=== PATIENT | female | born 1940 | race Two or more races ===

== ENCOUNTER → 2023-10-02 08:04 | Outpatient (BNV) | payer MEDICAID, SELFPAY | PROVIDERS: Visit Provider Internal Medicine | DX: Z85.3 Personal history of malignant neoplasm of breast (principal); M81.0 Age-related osteoporosis without current pathological fracture | CPT/HCPCS: 99204; 99214 ==

== ENCOUNTER 2024-08-20 10:11 | Outpatient (REF) | payer MEDICAID, SELFPAY ==
--- OUTSIDE RECORDS SUMMARY | 2024-08-20 11:54 | XMS_ITS | Clinical Summary ---
Author Organization [employer] Address [address] [place] [address] 7 [place] [address] Care Team Providers Care Swim Coach Name Role Phone Arianne Patel MD Primary Care Provider [phone] Allergies Active Allergy Reactions Criticality Noted Date Comments Amoxicillin 07/06/2023 Medications valACYclovir (Valtrex) 1 g tablet 07/26/19 24 Active gabapentin (Neurontin) 300 MG capsuleIndication s:Trigeminal neuralgia of right side of face TAKE 1 CAPSULE BY MOUTH THREE TIMES A DAY 90 capsule 2 10/19/19 24 Active fluconazole (Diflucan) 150 MG tablet Take 1 tablet (150 mg) by mouth every 3rd (third) day. 3 tablet 11/14/19 24 Active Multiple Vitamin (Daily-Jeanette Multivitamin) tablet TAKE 1 TABLET BY MOUTH EVERY DAY IN THE MORNING 90 tablet 1 12/01/19 24 Active magnesium oxide (Mag-Ox) 400 (240 Mg) MG tablet TAKE 1 TABLET (400 MG) BY MOUTH IN THE MORNING 90 tablet 1 02/01/20 24 Active zolpidem (Ambien) 5 MG tabletIndications :Insomnia, unspecified type Take 1 tablet (5 mg) by mouth if needed at bedtime for sleep. 28 tablet 1 02/07/20 24 Active levothyroxine (Synthroid, Levoxyl) 25 MCG tabletIndications :Acquired hypothyroidism TAKE 1 TABLET BY MOUTH EVERY DAY BEFORE BREAKFAST 90 tablet 1 07/09/19 25 Active Blood Pressure kitIndications:Pr imary hypertension 1 kit 2 times daily. 1 kit 08/21/19 25 Active bisoprolol (Zebeta) 10 MG tablet Take 1 tablet (10 mg) by mouth Once per day. 90 tablet 1 08/21/19 25 2025 Active letrozole (Femara) 2.5 MG chemo tabletIndications :History of breast cancer in female TAKE 1 TABLET BY MOUTH IN THE MORNING. TAKE WITH OR WITHOUT FOOD. 90 tablet 1 12/01/19 24 2024 Discontinued(T herapy completed) bisoprolol (Zebeta) 5 MG tabletIndications :Primary hypertension Take 1 tablet (5 mg) by mouth Once per day. 90 tablet 1 02/12/20 24 2024 Discontinued(R eorder (will not trigger notification to Pharmacy)) bisoprolol (Zebeta) 5 MG tabletIndications :Primary hypertension Take 1 tablet (5 mg) by mouth Once per day. 90 tablet 1 08/08/19 25 2024 Discontinued(I neffective) Active Problems Problem Noted Date Diagnosed Date History of breast cancer in female 07/06/2023 Assessment & Plan (07/06/2023 3:58 PM EST): Patient has a history of breast cancer in 2015. Her last mammogram was in November 2022 but never obtained results. I have referred her to an oncologist. Per patient was told she needed to use letrozole for the rest of her life, no documentation of recommendation of duration. Will refer to oncology to review recommendation of frequency of imaging, duration of letrozole to weigh the benefits of longer treatment against the well-known side effects of therapy, such as arthralgias, osteoporosis, hair thinning, and genitourinary health Primary hypertension 07/06/2023 Assessment & Plan (07/31/2023 10:12 PM EDT): High blood pressure was noted, ans she was advised to monitor her blood pressure at home and F/U with a nurse in a few weeks for re-evaluation. No changes were made to her blood pressure medication at this time. Future Appointments Date Time Provider Department Center 01/04/2024 9:00 AM Deedee Mendez OD [facility] Assessment & Plan (07/06/2023 12:00 PM EST): Patient is a new patient accompanied by daughter who is helping translate in Bulgarian. Her last PCP was in [place]. She will be traveling to [place] and will get all the medical records. Daughter will upload immunization record into portal and will check if she needs any during her next F/U. She also wants a refill of her medication that are about to finish. I have also referred her to nibbler operator. Labs: CBC, Complete Metabolic Panel, Lipids, TSH w/ reflex to FT4, Albumin, Urinalysis complete w/ reflex to culture Future Appointments Date Time Provider Department Center 07/31/2023 9:15 AM Arianne Patel MD [facility] Acquired hypothyroidism 07/06/2023 Herpes labialis 07/06/2023 Trigeminal neuralgia of right side of face 07/06 Assessment & Plan (07/06/2023 3:54 PM EST): Patient reports hx of trigeminal neuralgia, reports has intermittent episodes and has a good response with gabapentin. Severe aortic stenosis 07/06/2023 Overview (07/06/2023): Biological prosthesis (2019) Assessment & Plan (07/06/2023 11:58 AM EST): Patient reports she has Aortic Stenosis. I have sent her for an ECHO and referred her to waitstaff captain. Encounters Date Type Department Care Team Description 08/20/2024 9:15 AM EDT Office Visit [facility] [address] [place] [address] Courtney Hein MD Primary hypertension (Primary Dx); Acquired hypothyroidism 08/20/2024 Travel 08/19/2024 Telephone [facility] MEDICINE [address] [place] [address] Arianne Patel MD 08/07/2024 Refill [facility] [address] [place] [address] Didi Weathers MD Primary hypertension 08/07/2024 Refill [facility] [address] [place] [address] Arianne Patel MD Primary hypertension 07/06/2024 Refill [facility] [address] [place] [address] Didi Weathers MD Acquired hypothyroidism 06/12/2024 9:30 AM EST Office Visit [facility] OPTOMETRY [address] [place] [address] Deedee Mendez, OD Presbyopia (Primary Dx) 06/12/2024 Travel from Last 3 Months Immunizations Name Administration Dates Next Due Pneumococcal Conjugate PCV 20 07/31/2023 Family History Medical History Relation Name Comments Glaucoma Neg Hx Macular degeneration Neg Hx Social History Tobacco Use Types Packs/Day Years Used Date Smoking Tobacco: Never Passive Smoke Exposure: Never Smokeless Tobacco: Never Tobacco Cessation:Counseling Given: Not Answered Alcohol Use Standard Drinks/Week Comments Never 0 (1 standard drink = 0.6 oz pur e alcohol) Depression Answer Date Recorded Patient Health Questionnaire-9 Score 5 08/20/2024 Patient Health Questionnaire-9 Score 5 08/20/2024 Last PHQ-9: Questionnaire Data Not on file 0 08/20/2024 Housing Stability Answer Date Recorded What is your housing situation today? Not on sheryl e 08/20/[address] you li ve. Do you have problems with any of the following? None of the above 08/20/2024 Food Insecurity Answer Date Recorded Within the past 12 months, y ou worried that your food would run out before you got money to buy more: Never True 08/20/2024 Within the past 12 months,th e food you bought just didn't last and you didn't have enough money to get more: Not on file 05/2024 Transportation Answer Date Recorded In the past 12 months, has l ack of transportation kept you from medical appts, meetings, work or from getting things needed for daily living? No 08/20/2024 Utilities Answer Date Recorded In the past 12 months, has t he electric, gas, oil or water company threatened to shut off services in your home? No 08/20/2024 Depression Answer Date Recorded Patient Health Questionnaire-2 Score 1 08/20/2024 Internet Access Answer Date Recorded Internet Access Q1 Yes 08/20/2024 Internet Access Q2 Not on file 08/20/2024 Comments Unknown Sex and Gender Information Value Date Recorded Sex Assigned at Female 04/07/2023 9:47 AM EST Legal Sex Female 10:45 AM EST Gender Identity Female 04/07/2023 9:47 AM EST Sexual Orientation Straight 04/07/2023 9: 47 AM EST Last Filed Vital Signs Vital Sign Reading Time Taken Comments Blood Pressure 191/81 08/20/2024 8:55 AM EDT Pulse 54 08/20/2024 8:55 AM EDT Temperature 36.2 ??C (97.2 ??F) 08/20/2024 8:55 AM ED T Respiratory Rate 14 08/20/2024 8:55 AM EDT Oxygen Saturation 96% 08/20/2024 8:55 AM EDT Inhaled Oxygen Concentration - - Weight 55.7 kg (122 lb 12.8 oz) 08/20/2024 8:55 AM EDT Height 141 cm (4' 7.5 ) 08/20/2024 8:55 AM EDT Body Mass Index 28.03 08/20/2024 8:55 AM EDT Plan of Treatment Upcoming Encounters Date Type Department Care Team (Late st Contact Info) Description 09/16/2024 10:00 AM EDT Clinical Support [facility] [address] [place] [address] Health Maintenance Due Date Last Done Comments Lipid Panel 1942 Alcohol/Substance Use Screening 1954 DTaP/Tdap/Td Vaccines (1 - Tdap) 1961 Zoster Vaccines (1 of 2) 1992 RSV Patients and Patients Aged 60 years or older (1 - 1-dose 75+ series) 2017 COVID-19 Vaccine ( - 2023-2 5 season) 2024 Influenza Vaccine (#1) 2024 SDOH Screening 07/06/2024 07/06/2023 Depression Screening 08/20/2025 08/20/2024, 08/20/2024 Tobacco Screening 08/20/2025 08/20/2024 Pneumococcal Vaccine: 50+ Years Completed 07/31/2023 HIB Vaccines Aged Out No longer eligi ble based on patient's age to complete this topic HPV Vaccines Aged Out No longer eligi ble based on patient's age to complete this topic Hepatitis A Vaccines Aged Out No long er eligible based on patient's age to complete this topic Hepatitis B Vaccines Aged Out No long er eligible based on patient's age to complete this topic IPV Vaccines Aged Out No longer eligi ble based on patient's age to complete this topic Meningococcal Vaccine Aged Out No onelia yesenia eligible based on patient's age to complete this topic RSV under 20 months Aged Out No longe r eligible based on patient's age to complete this topic Rotavirus Vaccines Aged Out No longer eligible based on patient's age to complete this topic Insurance [employer] Care Teams Swim Coach Relationship Specialty Start Date End Date Arianne Patel MD [address] [place] [address] PCP - General Family Medicine 05/24/23
--- OUTSIDE RECORDS SUMMARY | 2024-08-20 11:54 | XMS_ITS | Encounter Summary ---
Author Organization [employer] Address [address] [facility] 7t [place] [address] Care Team Providers Care Financial Sales Consultant Name Role Phone Arianne Patel MD Primary Care Provider Encounter Details Date Type Department Care Team (Latest Contact Info) Description 08/20/2024 Travel Social History Tobacco Use Types Packs/Day Years Used Date Smoking Tobacco: Never Passive Smoke Exposure: Never Smokeless Tobacco: Never Alcohol Use Standard Drinks/Week Comments Never 0 [...] Orientation Straight 04/07/2023 9: 47 AM EST documented as of this encounter Plan of Treatment Upcoming Encounters Date Type Department Care Team (Late st Contact Info) Description 09/16/2024 10:00 AM EDT Clinical Support [facility] MED & PEDS [address] [place] [address] documented as of this encounter Visit Diagnoses Not on filedocumented in this encounter Additional Health Concerns Assessment Noted Time PHQ-9 Depression Total Score: 5 08/21/19 25 9:58 AM EDT documented as of this encounter Care Teams Financial Sales Consultant Relationship Specialty Start Date End Date Arianne Patel MD [address] [place] [address] PCP - General Family Medicine 05/24/23 documented as of this encounter
--- OUTSIDE RECORDS SUMMARY | 2024-08-20 11:54 | XMS_ITS | Encounter Summary ---
Author Organization [employer] Address [address] [place] [address] [place] [address] Care Team Providers Care Steel Post Installer Supervisor Name Role Phone Arianne Patel MD Primary Care Provider [phone] Reason for Visit * Reason Comments Annual Exam Encounter Details Date Type Department Care Team (Latest Contact Info) Description 08/20/2024 9:15 AM EDT Office Visit [facility] [address] [place], [place] [phone] Courtney Hein MD [address] [place] [address] Primary hypertension (Primary Dx); Acquired hypothyroidism Social History Tobacco Use Types Packs/Day Years [...] AM EST documented as of this encounter Last Filed Vital Signs Vital Sign Reading [...] Mass Index 28.03 08/20/2024 8:55 AM EDT documented in this encounter Plan of Treatment Upcoming Encounters Date Type Department Care Team (Late st Contact Info) Description 09/16/2024 10:00 AM EDT Clinical Support [facility] [address] [place] [address] Scheduled Orders Name Type Priority Associated Diagnoses Orde r Schedule Albumin, Random Urine W/Creatinine Lab Routine Primary hypertension Acquired hypothyroidism Expected: 08/20/2024 (Approximate), Expires: 08/20/2025 CBC auto differential Lab Routine Primary hypertension Acquired hypothyroidism Expected: 08/20/2024 (Approximate), Expires: 08/20/2025 Hepatic Function Panel Lab Routine Primary hypertension Acquired hypothyroidism Expected: 08/20/2024 (Approximate), Expires: 08/20/2025 Vitamin B12/Folate, Serum Panel Lab Routine Primary hypertension Acquired hypothyroidism Expected: 08/20/2024, Expires: 08/20/2025 Vitamin D, 25-Hydroxy, Total, Immunoassay Lab Routine Primary hypertension Acquired hypothyroidism Expected: 08/20/2024 (Approximate), Expires: 08/20/2025 TSH W/Reflex to FT4 Lab Routine Primary hypertension Acquired hypothyroidism Expected: 08/20/2024 (Approximate), Expires: 08/20/2025 Basic Metabolic Panel Lab Routine Primary hypertension Acquired hypothyroidism Expected: 08/20/2024 (Approximate), Expires: 08/20/2025 Urinalysis with reflex microscopic Lab Routine Primary hypertension Expected: 08/20/2024, Expires: 08/20/2025 documented as of this encounter Visit Diagnoses Diagnosis Primary hypertension- Primary Unspecified essential hypertension Acquired hypothyroidism Unspecified hypothyroidism documented in this encounter Additional Health Concerns Assessment Noted Time PHQ-9 Depression Total Score: 5 08/21/19 25 9:58 AM EDT documented as of this encounter Care Teams Steel Post Installer Supervisor Relationship Specialty Start Date End Date Arianne Patel MD [address] [place] [id number] PCP - General Family Medicine 05/24/23 documented as of this encounter
--- OUTSIDE RECORDS SUMMARY | 2024-08-20 11:54 | XMS_ITS | Encounter Summary ---
Author Organization [employer] Address [address] [facility] 7t [place] [address] Care Team Providers Care Dough Molder Name Role Phone Arianne Patel MD Primary Care Provider Reason for Visit * Reason Comments Med Refill Encounter Details Date Type Department Care Team ([facility] st Contact Info) Description 08/07/2024 Refill [facility] [address] [place] [address] Arianne Patel MD [address] [place] [address] Primary hypertension Social History Tobacco Use Types Packs/Day Years Used Date Smoking Tobacco: Never Passive Smoke Exposure: Never Smokeless Tobacco: Never Alcohol Use Standard Drinks/Week Comments Never 0 (1 standard drink = 0.6 oz pur e alcohol) Depression Answer Date Recorded Patient Health Questionnaire-9 Score 0 07/06/2023 Patient Health Questionnaire-9 Score 0 07/06/2023 Last PHQ-9: Questionnaire Data Not on file 0 07/06/2023 Housing Stability Answer Date Recorded What is your housing situation today? I have rosalee gaytan 07/06/[address] you li ve. Do you have problems with any of the following? None of the above 07/06/2023 Food Insecurity Answer Date Recorded Within the past 12 months, y ou worried that your food would run out before you got money to buy more: Never True 07/06/2023 Within the past 12 months,th e food you bought just didn't last and you didn't have enough money to get more: Never True Transportation Answer Date Recorded In the past 12 months, has l ack of transportation kept you from medical appts, meetings, work or from getting things needed for daily living? No 07/06/2023 Utilities Answer Date Recorded In the past 12 months, has t he electric, gas, oil or water company threatened to shut off services in your home? No 07/06/2023 Depression Answer Date Recorded Patient Health Questionnaire-2 Score 0 07/06/2023 Comments Unknown Sex and Gender Information Value [...] 09/16/2024 10:00 AM EDT Clinical Support [facility] [address] [place] [address] documented as of this encounter Visit Diagnoses Diagnosis Primary hypertension Unspecified essential hypertension documented in this encounter Additional Health Concerns Assessment Noted Time PHQ-9 Depression Total Score: 0 07/06/19 10:53 AM EST documented as of this encounter Care Teams Dough Molder Relationship Specialty Start Date End Date Arianne Patel MD [address] [place] [address] PCP - General Family Medicine 05/24/23 documented as of this encounter
--- OUTSIDE RECORDS SUMMARY | 2024-08-20 11:54 | XMS_ITS | Encounter Summary ---
Author Organization [employer] Address [address] [facility] [address] [facility] [address] 7[address] [place] [address] Care Team Providers Care Independent Living Specialist Name Role Phone Arianne Patel MD Primary Care Provider [phone] Encounter Details Date Type Department Care Team ([facility] st Contact Info) Description 08/19/2024 Telephone [facility] MEDICINE [address] [place] [address] Arianne Patel MD [address] [place] [address] Social History Tobacco Use Types Packs/Day Years [...] AM EST documented as of this encounter Miscellaneous Notes * Telephone Encounter - Vasile Juan - 08/19/2024 1:27 PM EDT TC placed to pt regarding scheduling of annual visit. DR Patel does not have any availability at this time but if pt adament documented in this encounter Plan of Treatment Upcoming Encounters Date Type Department Care Team (Late st Contact Info) Description 09/16/2024 10:00 AM EDT Clinical Support [facility] PEDS [address] [place] [address] documented as of this encounter Visit Diagnoses Not on filedocumented in this encounter Additional Health Concerns Assessment Noted Time PHQ-9 Depression Total Score: 0 07/06/19 24 10:53 AM EST documented as of this encounter Care Teams Independent Living Specialist Relationship Specialty Start Date End Date Arianne Patel MD [address] [place] [address] PCP - General Family Medicine 05/24/23 documented as of this encounter
[2024-08-20 14:50] LABS: MANUAL DIFF FLAG NO
[2024-08-20 14:59] LABS: Basophils Percent Auto 0.5 % (0-2); Eosinophils Absolute Auto 0.1 X10*3/uL (0.0-0.4); Eosinophils Percent Auto 0.8 % (0-4); Hematocrit 38.7 % (37.0-47.0); Hemoglobin 12.5 g/dl (12.0-16.0); Imm Gran Abs Auto 0.02 X10*3/uL (0.00-0.03); Imm Gran Pct Auto 0.3 % (0.0-0.4); Lymphocytes Absolute Auto 1.7 X10*3/uL (1.2-4.9); Lymphocytes Percent Auto 21.3 % (20-40); Mean Corpuscular HGB Conc 32.3 g/dl (31.0-35.0); Mean Corpuscular Hemoglobin 30.6 pg (27.0-33.0); Mean Corpuscular Volume 94.9 fL (80.0-98.0); Mean Platelet Volume 10.2 fL (9.4-12.3); Monocytes Absolute Auto 0.9 X10*3/uL (0.1-1.2); Monocytes Percent Auto 11.3 % (2-11); Neutrophils Absolute Auto 5.1 x10*3/uL (2.0-8.3); Neutrophils Percent Auto 65.8 % (45-73); Platelet Count 199 X10*3/uL (160-400); Red Blood Count 4.08 X10*6/uL (4.20-5.50); Red Cell Distribution Width 14.5 % (11.0-16.0); White Blood Count 7.8 X10*3/uL (4.8-10.8)
[2024-08-20 15:00] LABS: Appearance Urine Clear; Color Urine Yellow; Glucose Urine UA Negative (Negative); Leukocyte Esterase Urine Negative (Negative); Nitrite Urine Negative (Negative); PH 5.5 (5.0-9.0); Specific Gravity - Urine 1.025 (1.005-1.025); UMIC TRIGGER UACC YES; Urine Blood Negative (Negative); Urine Ketones Negative (Negative); Urine Protein 100 (2+) mg/dL (Neg-Trace)
[2024-08-20 15:04] LABS: Bacteria Urine None Seen (None Seen); Hyaline Casts Urine 0-2 /LPF (0-2); RBC Urine 0-2 /HPF (0-2); Squamous Epithelial Cell Urine 0-2 /HPF (0-2); WBC Urine 0-5 /HPF (0-5)
[2024-08-20 17:00] LABS: Creatinine Urine 136.41 mg/dL; Microalbum/Creatinine Ratio Ur 207.4 ug/mg cr (<30)
[2024-08-20 17:37] LABS: Alanine Aminotransferase 17 U/L (0-31); Albumin Level 4.4 g/dL (3.5-5.0); Alkaline Phosphatase 114 U/L (39-117); Anion Gap 11 (12-20); Aspartate Amino Transferase 30 U/L (5-31); Bilirubin Direct 0.1 mg/dL (0.0-0.5); Bilirubin Total 0.3 mg/dL (0.0-1.0); Blood Urea Nitrogen 46 mg/dL (9-16); Calcium 9.7 mg/dL (8.4-10.2); Carbon Dioxide 26 mmol/L (22-29); Chloride 110 mmol/L (96-108); Estimated Glomerular Filt Rate 39; Glucose Random 86 mg/dL (60-115); Potassium 4.7 mmol/L (3.3-5.1); Sodium 142 mmol/L (135-145); TSH reflex Free T4 1.63 uIU/mL (0.32-4.0); Total Protein 7.7 g/dL (6.5-8.0); Vitamin D 25-OH Total 35.1 ng/mL (>30)
[2024-08-20 17:56] LABS: Folate 15.1 ng/mL (> or = 4.0); Vitamin B12 911 pg/mL (200-900)
== END 2024-08-20 10:12 | disposition home or self-care (01) ==
LOC: HO.CHCLDS 10:11
PROVIDERS: Visit Provider Pediatrics
DX: I10 Essential (primary) hypertension (principal); E03.9 Hypothyroidism, unspecified
CPT/HCPCS: 36415; 80048; 80076; 81001; 81003; 82043; 82306; 82570; 82607; 82746; 84443; 85025

== ENCOUNTER 2024-09-06 13:07 | Outpatient (REF) | payer MEDICAID, SELFPAY ==
--- OUTSIDE RECORDS SUMMARY | 2024-09-06 13:40 | XMS_ITS | Encounter Summary ---
Author Organization [employer] Address [address] [facility] 7t [place] [address] Care Team Providers Care Clinical Staff Anesthesiologist Name Role Phone Arianne Patel MD Primary Care Provider [phone] Encounter Details Date Type Department Care Team ([facility] st Contact Info) Description 09/04/2024 Telephone [facility] [address] [place], [place] [phone] Arianne Patel MD [address] [place], [place] [phone] Social History Tobacco Use Types Packs/Day Years [...] housing situation today? I have rosalee gaytan 09/02/[address] you li ve. Do you have problems with any of the following? None of the above 09/02/2024 Food Insecurity Answer Date Recorded Within the past 12 months, y ou worried that your food would run out before you got money to buy more: Never True 09/02/2024 Within the past 12 months,th e food [...] Description 09/16/2024 10:00 AM EDT Clinical Support [facility] MED & PEDS [address] [place] [address] documented as of this encounter Visit Diagnoses Not on filedocumented in this encounter Additional Health Concerns Assessment Noted Time PHQ-9 Depression Total Score: 5 08/21/19 25 9:58 AM EDT documented as of this encounter Care Teams Clinical Staff Anesthesiologist Relationship Specialty Start Date End Date Arianne Patel MD [address] [place] [address] PCP - General Family Medicine 05/24/23 documented as of this encounter
--- OUTSIDE RECORDS SUMMARY | 2024-09-06 13:40 | XMS_ITS | Encounter Summary ---
Author Organization [employer] Address [address] [place] [address] 7 [place] [address] Care Team Providers Care Trust Manager Assistant Name Role Phone rAianne Patel MD Primary Care Provider [phone] Reason for Visit * Reason Comments Med Refill Encounter Details Date Type Department Care Team ([facility] st Contact Info) Description 09/06/2024 Refill [facility]S [address] [place], [place] [phone] Didi Weathers MD [address] [place] [address] Social History Tobacco Use Types Packs/Day Years [...] Description 09/16/2024 10:00 AM EDT Clinical Support [facility] [address] [place] [address] documented as of this encounter Visit Diagnoses Not on filedocumented in this encounter Additional Health Concerns Assessment Noted Time PHQ-9 Depression Total Score: 5 08/21/19 25 9:58 AM EDT documented as of this encounter Care Teams Trust Manager Assistant Relationship Specialty Start Date End Date Arianne Patel MD [address] [place] [address] PCP - General Family Medicine 05/24/23 documented as of this encounter
--- OUTSIDE RECORDS SUMMARY | 2024-09-06 13:40 | XMS_ITS | Encounter Summary ---
Author Organization [employer] Address [address] [facility] 7t [place] [address] Care Team Providers Care Pie Filler Name Role Phone Arianne Patel MD Primary Care Provider [phone] Encounter Details Date Type Department Care Team (Latest Contact Info) Description 09/02/2024 Travel Social History Tobacco Use Types Packs/Day [...] 09/16/2024 10:00 AM EDT Clinical Support [facility] [address] [place] [address] documented as of this encounter Visit Diagnoses Not on filedocumented in this encounter Additional Health Concerns Assessment Noted Time PHQ-9 Depression Total Score: 5 08/21/19 25 9:58 AM EDT documented as of this encounter Care Teams Pie Filler Relationship Specialty Start Date End Date Arianne Patel MD [address] [place] [address] PCP - General Family Medicine 05/24/23 documented as of this encounter
--- OUTSIDE RECORDS SUMMARY | 2024-09-06 13:40 | XMS_ITS | Encounter Summary ---
Author Organization [employer] Address [address] [facility] 7t [place] [address] Care Team Providers Care Business Process Representative Name Role Phone Arianne Patel MD Primary Care Provider [phone] Reason for Visit * Reason Comments Med Refill Encounter Details Date Type Department Care Team ([facility] st Contact Info) Description 08/07/2024 Refill [facility] MEDICINE [address] [place] [address] Arianne Patel MD [address] [place], [place] [phone] Primary hypertension Social History Tobacco Use Types [...] Description 09/16/2024 10:00 AM EDT Clinical Support [facility] MED & PEDS [address] [place] [address] documented as of this encounter Visit Diagnoses Diagnosis Primary hypertension Unspecified essential hypertension documented in this encounter Additional Health Concerns Assessment Noted Time PHQ-9 Depression Total Score: 0 07/06/19 10:53 AM EST documented as of this encounter Care Teams Business Process Representative Relationship Specialty Start Date End Date Arianne Patel MD [address] [place] [address] PCP - General Family Medicine 05/24/23 documented as of this encounter
--- OUTSIDE RECORDS SUMMARY | 2024-09-06 13:40 | XMS_ITS | Clinical Summary ---
Author Organization [facility] [address] Address [address] [place] [phone] Phone Care Team Providers Care Medical Psychotherapist Name Role Phone Courtney Hein MD Primary Care Provider Unav ailable Social History Tobacco Use Types Packs/Day Years Used Date Smoking Tobacco: Never Assessed Comments Unknown Sex and Gender Information Value Date Recorded Sex Assigned at Not on file Legal Sex Female 1:24 PM EDT Gender Identity Not on file Sexual Orientation Not on file Plan of Treatment Upcoming Encounters Date Type Department Care Team (Late st Contact Info) Description 10/24/2024 11:00 AM EDT Office Visit [facility] [address] [phone] Irvin Barth MD [address] [phone] Health Maintenance Due Date Last Done Comments Influenza Vaccine (Season Ended) 2025 Pneumococcal Vaccine: 50+ Years Completed 4 Hepatitis B Vaccine Aged Out No longe r eligible based on patient's age to complete this topic Insurance Medicare Medicaid [place] Care Teams Medical Psychotherapist Relationship Specialty Start Date End Date Courtney Hien MD [address] [place] [id number] PCP - General Internal Medicine 09/02/24
--- OUTSIDE RECORDS SUMMARY | 2024-09-06 13:40 | XMS_ITS | Encounter Summary ---
Author Organization [employer] [facility] Address [address] [place] [address] [place] [address] Care Team Providers Care Forms Analyst Name Role Phone Arianne Patel MD Primary Care Provider [phone] Reason for Referral * Consultation (Routine) - Closed Specialty Diagnoses / Procedures Referred By Carmenza beckford Referred To Contact Neurology Diagnoses Memory disturbance Ryan Rordiguez MD [address] [place] [address] Phone: tel: fax: [facility] [address] [place], [place] Phone: tel: fax: Referral ID Status Reason Start Date Expiration Date V isits Requested Visits Authorized [id number] Closed Specialty Services Required 09/02/2024 09/02/2025 1 1 * Imaging (Routine) - Authorized Specialty Diagnoses / Procedures Referred By Carmenza beckford Referred To Contact Radiology Diagnoses Memory disturbance Procedures CT Head w/o Contrast Ryan Rodriguez MD [address] [place] [address] Phone: tel: fax: [facility] [address] [address] Phone: tel: fax: Referral ID Status Reason Start Date Expiration Date V isits Requested Visits Authorized [id number] Authorized 09/02/2024 09/02/2025 1 1 Reason for Visit * Reason Comments Follow-up Encounter Details Date Type Department Care Team ([facility] Contact Info) Description 09/02/2024 11:00 AM EDT Office Visit [facility] [address] [place] [address] Ryan Rodriguez MD [address] [place] [address] Trigeminal neuralgia of right side of face (Primary Dx); Memory disturbance; Primary hypertension Social History Tobacco Use Types [...] 9:47 AM EST Sexual Orientation Straight 04/07/2023 9 :47 AM EST documented as of this encounter Last Filed Vital Signs Vital Sign Reading Time Taken Comments Blood Pressure 154/66 09/02/2024 11:24 AM EDT Pulse 44 09/02/2024 11:24 AM EDT Temperature 36.6 ??C (97.8 ??F) 09/02/2024 11:24 AM E DT Respiratory Rate 20 09/02/2024 11:24 AM EDT Oxygen Saturation 97% 09/02/2024 11:24 AM EDT Inhaled Oxygen Concentration - - Weight 54 kg (119 lb) 09/02/2024 11:24 AM EDT Height 141 cm (4' 7.5 ) 09/02/2024 11:24 AM EDT Body Mass Index 27.16 09/02/2024 11:24 AM EDT documented in this encounter Progress Notes * Ryan Rodriguez MD - 09/02/2024 11:00 AM EDT Subjective Patient ID: Kirsten Rivera is a 83 y.o. female who presents for Follow-up. HPI 1) history of uncontrolled hypertension. BP was very elevated at the last visit and patient was started on hydrochlorothiazide 12.5%. Was supposed to get a repeat basic metabolic profile on August 30.Test was not done. Otherwise the medication is well-tolerated. No reported side effect. 2) history of trigeminal neuralgia. Patient came with the daughter who reports that she is on gabapentin 300 mg that she is supposed to take 3 times a day but she uses it only as needed because of dizziness caused by the medication. 3) patient relocated to the [place] about a year and a half ago. According to the daughter Mrs. Kirsten Rivera has been experiencing short-term memory disturbances. Had a recent TSH and vitamin B12 checked which were normal. Patient Active Problem List Diagnosis History of breast cancer in female Primary hypertension Acquired hypothyroidism Herpes labialis Trigeminal neuralgia of right side of face Severe aortic stenosis Allergies Allergen Reactions Amoxicillin Current Outpatient Medications on File Prior to Visit Medication Sig Dispense Refill bisoprolol (Zebeta) 10 MG tablet Take 1 tablet (10 mg) by mouth Once per day. 90 tablet 1 Blood Pressure kit 1 kit 2 times daily. 1 kit 0 fluconazole (Diflucan) 150 MG tablet Take 1 tablet (150 mg) by mouth every 3rd (third) day. 3 tablet 0 hydroCHLOROthiazide 12.5 MG tablet Take 1 tablet (12.5 mg) by mouth Once per day. 30 tablet 11 levothyroxine (Synthroid, Levoxyl) 25 MCG tablet TAKE 1 TABLET BY MOUTH EVERY DAY BEFORE BREAKFAST 90 tablet 1 magnesium oxide (Mag-Ox) 400 (240 Mg) MG tablet TAKE 1 TABLET (400 MG) BY MOUTH IN THE MORNING 90 tablet 1 Multiple Vitamin (Daily-Jeanette Multivitamin) tablet TAKE 1 TABLET BY MOUTH EVERY DAY IN THE MORNING 90 tablet 1 valACYclovir (Valtrex) 1 g tablet zolpidem (Ambien) 5 MG tablet Take 1 tablet (5 mg) by mouth if needed at bedtime for sleep. 28 tablet 1 [DISCONTINUED] gabapentin (Neurontin) 300 MG capsule TAKE 1 CAPSULE BY MOUTH THREE TIMES A DAY 90 capsule 2 No current facility-administered medications on file prior to visit. Review of Systems Constitutional: Negative for appetite change, chills and diaphoresis. Respiratory: Negative for cough, choking and shortness of breath. Genitourinary: Negative for hematuria, menstrual problem and pelvic pain. Neurological: Memory disturbances Objective BP (!) 154/66 (BP Location: Left arm, Patient Position: Sitting, BP Cuff Size: Adult) Pulse (!) 44 Temp 97.8 ??F (36.6 ??C) (Oral) Resp 20 Ht 4' 7.5 (1.41 m) Wt 119 lb (54 kg) SpO2 97% BMI 27.16 kg/m?? Physical Exam Constitutional: General: She is not in acute distress. Appearance: Normal appearance. She is not ill-appearing, toxic-appearing or diaphoretic. Cardiovascular: Rate and Rhythm: Normal rate. Pulmonary: Effort: Pulmonary effort is normal. Neurological: Mental Status: She is alert. Assessment/Plan Diagnoses and all orders for this visit: Trigeminal neuralgia of right side of face Comments: The dose of gabapentin was decreased to 100 to 200 mg as needed Patient is to report any side effect. Orders: - gabapentin (Neurontin) 100 MG capsule; 1-2 tabs 2 times a day. Memory disturbance Comments: Labs ordered Patient will be contacted with results CT brain ordered. Will refer to the memory clinic once the workup is completed. Orders: - CT Head w/o Contrast; Future - Referral to Neurology; Future - Syphilis Screen; Future Primary hypertension Comments: Improved BMP today Patient will be contacted with results Follow-up with PCP in 4 weeks documented in this encounter Plan of Treatment Upcoming Encounters Date Type Department Care Team (Late st Contact Info) Description 09/16/2024 10:00 AM EDT Clinical Support [facility] [address] [place] [address] Scheduled Orders Name Type Priority Associated Diagnoses Orde r Schedule CT Head w/o Contrast Imaging Routine Memory disturbance Expected: 09/02/2024, Expires: 09/02/2025 Syphilis Screen Lab Routine Memory disturbance Expected: 09/02/2024, Expires: 09/02/2025 Scheduled Referrals Name Type Priority Associated Diagnoses Orde r Schedule Referral to Neurology Outpatient Referral Routine Memory disturbance Expected: 09/02/2024 (Approximate), Expires: 09/02/2025 documented as of this encounter Visit Diagnoses Diagnosis Trigeminal neuralgia of right side of face- Primary Memory disturbance Memory loss Primary hypertension Unspecified essential hypertension documented in this encounter Additional Health Concerns Assessment Noted Time PHQ-9 Depression Total Score: 5 08/21/19 25 9:58 AM EDT documented as of this encounter Care Teams Forms Analyst Relationship Specialty Start Date End Date Arianne Patel MD [address] [place] [id number] PCP - General Family Medicine 05/24/23 documented as of this encounter
--- OUTSIDE RECORDS SUMMARY | 2024-09-06 13:41 | XMS_ITS | Clinical Summary ---
Author Organization [employer] Address [address] [place] [address] 7t [place] [address] Care Team Providers Care Traffic Court Magistrate Name Role Phone Arianne Patel MD Primary Care Provider [phone] Allergies Active Allergy Reactions Criticality Noted Date Comments Amoxicillin 07/06/2023 Medications valACYclovir (Valtrex) 1 g tablet 07/26/19 24 Active fluconazole (Diflucan) 150 MG tablet Take 1 tablet (150 mg) by mouth every 3rd (third) day. 3 tablet 11/14/19 24 Active magnesium oxide (Mag-Ox) 400 (240 [...] 90 tablet 1 08/21/19 25 2025 Active hydroCHLOROthiazi de 12.5 MG tablet Take 1 tablet (12.5 mg) by mouth Once per day. 30 tablet 11 08/24/19 25 2025 Active gabapentin (Neurontin) 100 MG capsuleIndication s:Trigeminal neuralgia of right side of face 1-2 tabs 2 times a day. 120 capsule 3 09/03/19 25 Active Multiple Vitamin (Daily-Jeanette Multivitamin) tablet TAKE 1 TABLET BY MOUTH EVERY DAY IN THE MORNING 90 tablet 09/07/19 25 Active gabapentin (Neurontin) 300 MG capsuleIndication s:Trigeminal neuralgia of right side of face TAKE 1 CAPSULE BY MOUTH THREE TIMES A DAY 90 capsule 2 10/19/19 24 2024 Discontinued(D ose adjustment) Multiple Vitamin (Daily-Jeanette Multivitamin) tablet TAKE 1 TABLET BY MOUTH EVERY DAY IN THE MORNING 90 tablet 1 12/01/19 24 2024 Discontinued letrozole (Femara) 2.5 MG chemo tabletIndications :History [...] 01/04/2024 9:00 AM Deedee Mendez OD [facility] Assessment & Plan (07/06/2023 12:00 PM EST): Patient is a new patient accompanied by daughter who is helping translate in Bur[place]ian. Her last PCP was in [place]. She will be traveling to [facility] and will get all the medical records. Daughter will upload immunization record into portal and will check if she needs any during her next F/U. She also wants a refill of her medication that are about to finish. I have also referred her to information systems administrator. Labs: CBC, Complete Metabolic Panel, Lipids, TSH w/ reflex to FT4, Albumin, Urinalysis complete w/ reflex to culture Future Appointments Date Time Provider Department Center 07/31/2023 9:15 AM Arianne Patel MD [facility] Acquired hypothyroidism 07/06/2023 Herpes labialis 07/06/2023 Trigeminal [...] for an ECHO and referred her to gas producer. Encounters Date Type Department Care Team Description 09/06/2024 Refill [facility] [address] [facility] [place] [address] Didi Weathers MD 09/04/2024 Telephone [facility] [address] [place] [address] Arianne Patel MD 09/02/2024 11:00 AM EDT Office Visit [facility] [address] [facility] [place] [address] Ryan Rodriguez MD Trigeminal neuralgia of right side of face (Primary Dx); Memory disturbance; Primary hypertension 09/02/2024 Travel 08/26/2024 Patient Outreach [facility] [address] [place] [address] Arianne Patel MD Pre-visit Planning (Pre visit planning LVM ) 08/23/2024 9:00 AM EDT Office Visit [facility] [address] [place] [address] Vaishali Knox MD Primary hypertension (Primary Dx); Accelerated hypertension; History of aortic valve disease 08/23/2024 Travel 08/22/2024 Telephone [facility] [address] [place] [address] Courtney Hein MD Results; Appointment Confirmation 08/22/2024 Telephone [facility] [address] [place] [address] Courtney Hein MD Results 08/22/2024 Telephone [facility] [address] [place] [address] Courtney Hein MD Results 08/21/2024 Orders Only [facility] [address] [place] [address] Courtney Hein MD CRF (chronic renal failure), stage 2 (mild) (Primary Dx); Primary hypertension; Proteinuria, unspecified type 08/20/2024 9:15 AM EDT Office Visit [facility] [address] [place] [address] Courtney Hein MD Primary hypertension (Primary Dx); Acquired hypothyroidism; Dietary counseling; Exercise counseling; Trigeminal neuralgia of right side of face; Severe aortic stenosis; History of breast cancer in female; Routine general medical examination at a health care facility 08/20/2024 Orders Only [facility] [address] [place] [address] Courtney Hein MD 08/20/2024 Travel 08/19/[address] [facility] [address] [place] [address] Arianne Patel MD 08/07/2024 Refill [facility] [address] [place] [address] Didi Weathers MD Primary hypertension 08/07/2024 Refill [facility] [address] [place] [address] Arianne Patel MD Primary hypertension 07/06/2024 Refill [facility] [address] [place] [address] Didi Weathers MD Acquired hypothyroidism 06/12/2024 9:30 AM EST Office Visit [facility] [address] [place] [address] Andrea, Deedee, OD Presbyopia (Primary Dx) 06/12/2024 Travel from [...] Mass Index 27.16 09/02/2024 11:24 AM EDT Plan of Treatment Upcoming Encounters Date Type Department Care Team (Late st Contact Info) Description 09/16/2024 10:00 AM EDT Clinical Support [facility] [address] [place] [address] Health Maintenance Due Date Last Done Comments Lipid Panel 1942 DTaP/Tdap/Td Vaccines (1 - Tdap) 1961 Zoster Vaccines (1 of 2) 1992 RSV Patients and Patients Aged 60 years or older (1 - 1-dose 75+ series) 2017 COVID-19 Vaccine (1 - 2023-2 5 season) 2024 Influenza Vaccine (#1) 2024 Depression Screening 08/20/2025 08/20/2024, 08/20/2024 Tobacco Screening 08/20/2025 08/20/2024 Alcohol/Substance Use Screening 09/02/2025 09/02/2024 SDOH Screening 09/02/2025 09/02/2024 Pneumococcal Vaccine: 50+ Years Completed 07/31/2023 HIB [...] on patient's age to complete this topic Procedures Procedure Name Priority Date/Time Associated Diagnosis Comments URINALYSIS, COMPLETE, WITH REFLEX TO CULTURE Routine 08/20/2024 10:20 AM EDT ALBUMIN, RANDOM URINE W/CREATININE Routine 08/20/2024 10:20 AM EDT Primary hypertension Acquired hypothyroidism BASIC METABOLIC PANEL Routine 08/20/2024 10:15 AM EDT Primary hypertension Acquired hypothyroidism TSH W/REFLEX TO FT4 Routine 08/20/2024 1 0:15 AM EDT Primary hypertension Acquired hypothyroidism VITAMIN D,25-OH,TOTAL,IA Routine 08/20/2024 10:15 AM EDT Primary hypertension Acquired hypothyroidism VITAMIN B12/FOLATE, SERUM PANEL Routine 08/20/2024 10:15 AM EDT Primary hypertension Acquired hypothyroidism HEPATIC FUNCTION PANEL Routine 08/20/2024 10:15 AM EDT Primary hypertension Acquired hypothyroidism CBC WITH AUTO DIFFERENTIAL Routine 08/20/2024 10:15 AM EDT Primary hypertension Acquired hypothyroidism from Last 3 Months Results * (ABNORMAL) Urinalysis, Complete, with Reflex to Culture (08/20/2024 10:20 AM EDT) Color Urine Yellow [facility] Appearance Urine Clear [facility] PH 5.5 5.0 - 9.0 [facility] Glucose Urine UA Negative Negative mg/dL [facility] Urine Blood Negative Negative [facility] Specific [place] - Urine 1.025 1.005 - 1.025 [facility] Urine Protein 100 (2+)(A) Neg-Trace mg/dL [facility] Urine Ketones Negative Negative mg/dL [facility] Nitrite Urine Negative Negative [facility] Leukocyte Esterase Urine Negative Negative [facility] RBC Urine 0-2 0 - 2 /HPF [facility] Urine WBC 0-5 0 - 5 /HPF [facility] Urine Squamous Epithelial Cell 0-2 0 - 2 /HPF [facility] Urine Bacteria None Seen None Seen [facility] Hyaline Casts, Urine 0-2 0 - 2 /LPF [facility] 08/20/2024 10:2 0 AM EDT 08/20/2024 2:37 PM EDT Narrative [facility] - 08/20/2024 3:05 PM EDT [id number], Clean Catch us Courtney Hein MD LAB URINE ORDERABLES Final Re sult [facility] [address] [place] [address] [phone] * (ABNORMAL) Albumin, Random Urine W/Creatinine (08/20/2024 10:20 AM EDT) Creatinine, Urine 136.41 mg/dL [facility] Microalbumin Urine 283.0 mg/L [facility] Microalbum Creatinine Ratio Ur 207.4(H) <30 ug/mg cr [facility] Comment:Albumin/Creatinine R atio Reference Ranges: Normal: < 30 ug/mg creatinine Microalbuminuria: 30 - 300 ug/mg creatinineClinical Albuminuria: > 300 ug/mg creatinine Urine (Urine, Random) 08/20/2024 10:20 AM EDT 08/20/2024 2:37 PM EDT Courtney Hein MD LAB URINE ORDERABLES Final Re sult Performing Organization Address City/[facility]/ZIP Co de Phone Number [facility] [address] [place] [phone] * Vitamin D, 25-Hydroxy, Total, Immunoassay (08/20/2024 10:15 AM EDT) Vitamin D 25-OH Total 35.1 >30 ng/mL [facility] Comment: Health Based Reference Values*< 20 ??ng/mL ??[id number] ng/mL ??Insufficient> 30 ??ng/mL ??Sufficient*Farnaz HOLGUIN. N Engl J Med. 2007;357:266-280There is no well-established upper level of normal vitamin Dlevels. Some laboratories use 50 ng/mL as an upper limit ofnormal. However, toxicity is patient-dependent and may occurat any level. Careful correlation with the patient'spresentation is necessary and, if there is concern forvitamin D toxicity, treatment should be consideredirrespective of the serum level.Care must be taken in interpreting Vitamin D results fromdifferent laboratories and methodologies. ??Published datademonstrated that results from patients undergoinghemodialysis may show a negative bias when tested withvarious automated 25-OH vitamin D assays when compared toLC- MS/MS.When testing samples from patients whose predominant form ofVitamin D is Vitamin D2, such as patients receiving VitaminD2 supplementation, results that are subtherapeutic shouldbe confirmed with another method such as LC-MS/MS. Blood Venous blood specimen / Unknown 08/20/2024 10:15 AM EDT 08/20/2024 2:43 PM EDT us Courtney Hein MD LAB BLOOD ORDERABLES Final Re sult Performing Organization Address City/[facility]/ZIP Co de Phone Number [facility] [address] [place] [address] [phone] * (ABNORMAL) Vitamin B12/Folate, Serum Panel (08/20/2024 10:15 AM EDT) Pathologist [facility] Vitamin B12 911(H) 200 - 900 pg/mL [facility] Comment:NORMAL 200-900 PG/ML INDETERMINATE 160-199 PG/ML DEFICIENT < 160 PG/ML Folate 15.1 > or = 4.0 ng/mL [facility] Comment:Reference Values:> o r = 4.0 ng/mL< 4.0 ng/mL suggests folate deficiency Methotrexate, aminopterin and folinic acid(leucovorin) are chemotherapeutic agents whose molecularstructures are similar to folate; therefore, the Architectfolate assay cannot be used for patients using these drugs. Blood Venous blood specimen / Unknown 08/20/2024 10:15 AM EDT 08/20/2024 2:43 PM EDT Courtney Hein MD LAB BLOOD ORDERABLES Final Re sult Performing Organization Address [facility]/ZIP Co de Phone Number [facility] [address] [place] [phone] * TSH W/Reflex to FT4 (08/20/2024 10:15 AM EDT) Pathologist [facility] TSH reflex Free T4 1.63 0.32 - 4.0 uIU/mL [facility] Blood Venous blood specimen / Unknown 08/20/2024 10:15 AM EDT 08/20/2024 2:43 PM EDT Courtney Hein MD LAB BLOOD ORDERABLES Final Re sult Performing Organization Address City/[facility]/ZIP Co de Phone Number [facility] [address] [place] [phone] * (ABNORMAL) CBC auto differential (08/20/2024 10:15 AM EDT) Pathologist [facility] White Blood Count 7.8 4.8 - 10.8 X10*3/uL [facility] Red Blood Count 4.08(L) 4.20 - 5.50 X10*6/uL [facility] Hemoglobin 12.5 12.0 - 16.0 g/dl [facility] Hematocrit 38.7 37.0 - 47.0 % [facility] Mean Corpuscular Volume 94.9 80.0 - 98.0 fL [facility] Mean Corpuscular Hemoglobin 30.6 27.0 - 33.0 pg [facility] Mean Corpuscular HGB Conc 32.3 31.0 - 35.0 g/dl [facility] Red Cell Distribution Width 14.5 11.0 - 16.0 % [facility] Platelet Count 199 160 - 400 X10*3/uL [facility] Mean Platelet Volume 10.2 9.4 - 12.3 fL [facility] Neutrophils Percent Auto 65.8 45 - 73 % [facility] Imm Gran Pct Auto 0.3 0.0 - 0.4 % [facility] Lymphocytes Percent Auto 21.3 20 - 40 % [facility] Monocytes Percent Auto 11.3(H) 2 - 11 % [facility] Eosinophils Percent Auto 0.8 0 - 4 % [facility] Basophils Percent Auto 0.5 0 - 2 % [facility] NRBC Pct Auto 0.0 0.0 - 0.2 /100WBC [facility] Neutrophils Absolute Auto 5.1 2.0 - 8.3 x10*3/uL [facility] Imm Gran Abs Auto 0.02 0.00 - 0.03 X10*3/uL [facility] Lymphocytes Absolute Auto 1.7 1.2 - 4.9 X10*3/uL [facility] Monocytes Absolute Auto 0.9 0.1 - 1.2 X10*3/uL [facility] Eosinophils Absolute Auto 0.1 0.0 - 0.4 X10*3/uL [facility] Basophils Absolute Auto 0.0 0.0 - 0.2 X10*3/uL [facility] NRBC Abs Auto 0.000 0.0 - 0.012 X10*3/uL [facility] Blood Venous blood specimen / Unknown 08/20/2024 10:15 AM EDT 08/20/2024 2:43 PM EDT Coutrney Hein MD LAB BLOOD ORDERABLES Final Re sult Performing Organization Address [facility] Co de Phone Number [facility] [address] [place] [phone] * Hepatic Function Panel (08/20/2024 10:15 AM EDT) Bilirubin, Total 0.3 0.0 - 1.0 mg/dL [facility] Bilirubin, Direct 0.1 0.0 - 0.5 mg/dL [facility] Aspartate Amino Transferase 30 5 - 31 U/L [facility] Alanine Aminotransferase 17 0 - 31 U/L [facility] Total Protein 7.7 6.5 - 8.0 g/dL [facility] Albumin Level 4.4 3.5 - 5.0 g/dL [facility] Alkaline Phosphatase 114 39 - 117 U/L [facility] Blood Venous blood specimen / Unknown 08/20/2024 10:15 AM EDT 08/20/2024 2:43 PM EDT Courtney Hein MD LAB BLOOD ORDERABLES Final Re sult Performing Organization Address [facility] Co de Phone Number [facility] [address] [place] [phone] * (ABNORMAL) Basic Metabolic Panel (08/20/2024 10:15 AM EDT) Sodium 142 135 - 145 mmol/L [facility] Potassium 4.7 3.3 - 5.1 mmol/L [facility] Chloride 110(H) 96 - 108 mmol/L [facility] Carbon Dioxide 26 22 - 29 mmol/L [facility] Anion Gap 11(L) 12 - 20 [facility] Urea Nitrogen (BUN) 46(H) 9 - 16 mg/dL [facility] Creatinine, Serum 1.30 0.5 - 1.4 mg/dL [facility] Estimated Glomerular Filt Rate 39 [facility] Comment:Chronic Kidney Disea se: Estimated GFR < 60 mL/min/1.29p9Mmpdch Kidney Disease: Estimated GFR < 15 mL/min/1.73m2 Glucose 86 60 - 115 mg/dL [facility] Calcium 9.7 8.4 - 10.2 mg/dL [facility] Blood Venous blood specimen / Unknown 08/20/2024 10:15 AM EDT 08/20/2024 2:43 PM EDT us Courtney Hein MD LAB BLOOD ORDERABLES Final Re sult [facility] [address] [place] [phone] [phone] from Last 3 Months Insurance [facility] MEDICARE Care Teams Traffic Court Magistrate Relationship Specialty Start Date End Date Arianne Patel MD [address] [place] [address] PCP - General Family Medicine 05/24/23
[2024-09-06 15:02] LABS: Anion Gap 12 (12-20); Blood Urea Nitrogen 43 mg/dL (9-16); Calcium 9.6 mg/dL (8.4-10.2); Carbon Dioxide 29 mmol/L (22-29); Chloride 103 mmol/L (96-108); Estimated Glomerular Filt Rate 47; Glucose Random 95 mg/dL (60-115); Potassium 4.5 mmol/L (3.3-5.1); Sodium 139 mmol/L (135-145)
[2024-09-06 15:09] LABS: Total Protein Urine Random 8 mg/dL (<12)
[2024-09-07 08:07] LABS: Syphilis Screen Nonreactive (Nonreactive)
== END 2024-09-06 13:08 | disposition home or self-care (01) ==
LOC: HO.CHCLDS 13:07
PROVIDERS: PCP Internal Medicine; Referring Provider Internal Medicine; Visit Provider Internal Medicine
DX: I10 Essential (primary) hypertension (principal); R41.3 Other amnesia
CPT/HCPCS: 36415; 80048; 82570; 84156; 86780

== ENCOUNTER → 2024-09-18 07:55 | Outpatient (REF) | payer MEDICAID, SELFPAY ==
--- OUTSIDE RECORDS SUMMARY | 2024-09-18 07:57 | XMS_ITS | Encounter Summary ---
Author Organization [employer] Address [address] [place] [address] 7 [place] [address] Care Team Providers Care Application Packager Name Role Phone Arianne Patel MD Primary Care Provider Encounter Details Date Type Department Care Team ([facility] st Contact Info) Description 09/17/2024 Orders Only [facility] [address] [place], [place] [phone] Ryan Rodriguez MD [address] [place] [address] Social History Tobacco Use Types Packs/Day Years [...] Upcoming Encounters Date Type Department Care Team ([facility] st Contact Info) Description 10/03/2024 11:30 AM EDT Office Visit [facility] MED & PEDS [address] [place] [address] Arianne Patel MD [address] [place] [address] documented as of this encounter Visit Diagnoses Not on filedocumented in this encounter Additional Health Concerns Assessment Noted Time PHQ-9 Depression Total Score: 5 08/21/19 25 9:58 AM EDT documented as of this encounter Care Teams Application Packager Relationship Specialty Start Date End Date Arianne Patel MD [address] [place] [address] PCP - General Family Medicine 05/24/23 documented as of this encounter
--- OUTSIDE RECORDS SUMMARY | 2024-09-18 07:57 | XMS_ITS | Clinical Summary ---
Author Organization [facility] Address [address] [place] [phone] Phone Care Team Providers Care Research Attorney Name Role Phone Courtney Hein MD Primary [...] Care Team (Late st Contact Info) Description 11/07/2024 9:30 AM EDT Office Visit [facility] [address] [phone] Irvin Barth MD [address] [phone] Health Maintenance Due Date Last Done Comments Influenza Vaccine (Season Ended) 2025 Pneumococcal Vaccine: 50+ Years Completed 4 Hepatitis B Vaccine Aged Out No longe r eligible based on patient's age to complete this topic Insurance Medicare Medicaid [place] Care Teams Research Attorney Relationship Specialty Start Date End Date Courtney Hein MD [address] [place] [phone] PCP - General Internal Medicine 09/02/24
--- OUTSIDE RECORDS SUMMARY | 2024-09-18 07:57 | XMS_ITS | Encounter Summary ---
Author Organization [employer] Address [address] [facility] 7t [place] [address] Care Team Providers Care Parts Processor Name Role Phone Arianne Patel MD Primary Care Provider [phone] Encounter Details Date Type Department Care Team ([facility] st Contact Info) Description 09/04/2024 Telephone C [facility] [address] [place], [place] [phone] Arianne Patel MD [address] [place], [place] [phone] Social History Tobacco Use Types Packs/Day Years [...] is your housing situation today? I have rsoalee gaytan 09/02/[address] you [...] Care Team (Late st Contact Info) Description 10/03/2024 11:30 AM EDT Office Visit [facility] MED & PEDS [address] [place] [address] Arianne Patel MD [address] [place] [address] documented as of this encounter Visit Diagnoses Not on filedocumented in this encounter Additional Health Concerns Assessment Noted Time PHQ-9 Depression Total Score: 5 08/21/19 25 9:58 AM EDT documented as of this encounter Care Teams Parts Processor Relationship Specialty Start Date End Date Arianne Patel MD [address] [place] [phone] PCP - General Family Medicine 05/24/23 documented as of this encounter
--- OUTSIDE RECORDS SUMMARY | 2024-09-18 07:57 | XMS_ITS | Encounter Summary ---
Author Organization [employer] Address [address] [facility] 7t [place] [address] Care Team Providers Care Superintendent Fish Hatchery Name Role Phone Arianne Patel MD Primary Care Provider [phone] Reason for Visit * Reason Comments Med Refill Encounter Details Date Type Department Care Team ([facility] st Contact Info) Description 08/07/2024 Refill [facility] MEDICINE [address] [place] [address] Arianne Patel MD [address] [place], [place] [phone] Primary hypertension Social History Tobacco Use Types [...] Description 10/03/2024 11:30 AM EDT Office Visit [facility] MED [facility] PEDS [address] [place] [address] Arianne Patel MD [address] [place] [address] documented as of this encounter Visit Diagnoses Diagnosis Primary hypertension Unspecified essential hypertension documented in this encounter Additional Health Concerns Assessment Noted Time PHQ-9 Depression Total Score: 0 07/06/19 10:53 AM EST documented as of this encounter Care Teams Superintendent Fish Hatchery Relationship Specialty Start Date End Date Arianne Patel MD [address] [place] [address] PCP - General Family Medicine 05/24/23 documented as of this encounter
--- OUTSIDE RECORDS SUMMARY | 2024-09-18 07:57 | XMS_ITS | Encounter Summary ---
Author Organization [employer] Address [address] [facility] 7t [place] [address] Care Team Providers Care Leadite Heater Name Role Phone Arianne Patel MD Primary Care Provider [phone] Encounter Details Date Type Department Care Team ([facility] st Contact Info) Description 09/16/2024 Telephone C [facility] [address] [place], [place] [phone] Arianne Patel MD [address] [place], [place] [phone] Social History Tobacco Use Types Packs/Day Years [...] Description 10/03/2024 11:30 AM EDT Office Visit [facility] MED & PEDS [address] [place] [address] Arianne Patel MD [address] [place] [address] documented as of this encounter Visit Diagnoses Not on filedocumented in this encounter Additional Health Concerns Assessment Noted Time PHQ-9 Depression Total Score: 5 08/21/19 25 9:58 AM EDT documented as of this encounter Care Teams Leadite Heater Relationship Specialty Start Date End Date Arianne Patel MD [address] [place] [phone] PCP - General Family Medicine 05/24/23 documented as of this encounter
--- OUTSIDE RECORDS SUMMARY | 2024-09-18 07:57 | XMS_ITS | Encounter Summary ---
Author Organization [employer] Address [address] [facility] [address]t [place] [address] Care Team Providers Care Dag Sprayer Name Role Phone Arianne Patel MD Primary Care Provider [phone] Encounter Details Date Type Department Care Team (Latest Contact Info) Description 09/16/2024 Travel Social History Tobacco Use Types Packs/Day [...] 11:30 AM EDT Office Visit [facility] MED & PEDS [address] [place] [address] Arianne Patel MD [address] [place] [address] documented as of this encounter Visit Diagnoses Not on filedocumented in this encounter Additional Health Concerns Assessment Noted Time PHQ-9 Depression Total Score: 5 08/21/19 25 9:58 AM EDT documented as of this encounter Care Teams Dag Sprayer Relationship Specialty Start Date End Date Arianne Patel MD [address] [place] [address] PCP - General Family Medicine 05/24/23 documented as of this encounter
--- OUTSIDE RECORDS SUMMARY | 2024-09-18 07:57 | XMS_ITS | Clinical Summary ---
Author Organization [employer] Address [address] [place] [address] [address] [place] [address] Care Team Providers Care Hospital Chaplain Name Role Phone Arianne Patel MD Primary Care Provider [phone] Allergies Active Allergy Reactions Criticality Noted Date [...] 01/04/2024 9:00 AM Deedee Mendez OD [facility] Assessment & Plan (07/06/2023 12:00 PM EST): Patient is a new patient accompanied by daughter who is helping translate in Tun[place]ian. Her last PCP was in [place]. She will be traveling to [facility] and will get all the medical records. Daughter will upload immunization record into portal and will check if she needs any during her next F/U. She also wants a refill of her medication that are about to finish. I have also referred her to pond supervisor. Labs: CBC, Complete Metabolic Panel, Lipids, TSH w/ reflex to FT4, Albumin, Urinalysis complete w/ reflex to culture Future Appointments Date Time Provider Department Center 07/31/2023 9:15 AM Arinane Patel MD [facility] Acquired hypothyroidism 07/06/2023 Herpes labialis 07/06/2023 [...] for an ECHO and referred her to mitochondrial disorders counselor. Encounters Date Type Department Care Team Description 09/17/2024 Orders Only [facility] [address] [place] [address] Ryan Rodriguez MD 09/16/2024 10:00 AM EDT Clinical Support [facility] [address] [place] [address] Vidya Woods, SHIVANI Primary hypertension 09/16/2024 Telephone [facility] [address] [place] [address] Arianne Patel MD 09/16/2024 Travel 09/11/2024 Telephone [facility] [address] [place] [address] Ryan Rodriguez MD 09/06/2024 Refill [facility] [address] [place] [address] Didi Weathers MD 09/04/2024 Telephone [facility] [address] [place] [address] Arianne Patel MD 09/02/2024 11:00 AM EDT Office Visit [facility] [address] [place] [address] Ryan Rodriguez MD Trigeminal neuralgia of right side of face (Primary Dx); Memory disturbance; Primary hypertension 09/02/2024 Travel 08/26/2024 Patient Outreach [facility] [address] [place] [address] Arianne Patel MD Pre-visit Planning (Pre visit planning LVM ) 08/23/2024 9:00 AM EDT Office Visit [facility] [address] [place] [address] Vaishali Knox MD Primary hypertension (Primary Dx); Accelerated hypertension; History of aortic valve disease 08/23/2024 Travel 08/22/2024 Telephone [facility] [address] [place] [address] Courtney Hein MD Results; Appointment Confirmation 08/22/2024 Telephone [facility] [address] [place] [address] Courtney Hein MD Results 08/22/2024 Telephone [facility] [address] [place] [address] Courtney Hein MD Results 08/21/2024 Orders Only [facility] [address] [place] [address] Courtney Hein MD CRF (chronic renal failure), stage 2 (mild) (Primary Dx); Primary hypertension; Proteinuria, unspecified type 08/20/2024 9:15 AM EDT Office Visit [facility] [address] [place] [address] Courtney Hein MD Primary hypertension (Primary Dx); Acquired hypothyroidism; Dietary counseling; Exercise counseling; Trigeminal neuralgia of right side of face; Severe aortic stenosis; History of breast cancer in female; Routine general medical examination at a health care facility 08/20/2024 Orders Only [facility] [address] [place] [address] Courtney Hein MD 08/20/2024 Travel 08/19/2024 Telephone [facility] [address] [place] [address] Arianne Patel MD 08/07/2024 Refill [facility] [address] [place] [address] Didi Weathers MD Primary hypertension 08/07/2024 Refill [facility] [address] [place], [place] [phone] Arianne Patel MD Primary hypertension 07/06/2024 Refill [facility] [address] [place] [address] Didi Weathers MD Acquired hypothyroidism from Last 3 Months Immunizations Name Administration [...] Sign Reading Time Taken Comments Blood Pressure 148/84 09/16/2024 10:21 AM EDT Pulse 60 09/16/2024 10:20 AM EDT Temperature 36.6 ??C (97.8 ??F) [...] Description 10/03/2024 11:30 AM EDT Office Visit [facility] [address] [place] [address] Arianne Patel MD [address] [place] [address] Health Maintenance Due Date Last Done Comments [...] Procedure Name Priority Date/Time Associated Diagnosis Comments PROTEIN CREATININE RATIO, URINE Routine 09/06/2024 1:10 PM EDT Accelerated hypertension SYPHILIS SCREEN Routine 09/06/2024 1:09 PM EDT Memory disturbance BASIC METABOLIC PANEL Routine 09/06/2024 1:09 PM EDT Primary hypertension CT HEAD WO CONTRAST Routine 09/06/2024 Memory disturbance URINALYSIS, COMPLETE, WITH REFLEX TO CULTURE Routine [...] from Last 3 Months Results * (ABNORMAL) Protein Creatinine Ratio, Urine (09/06/2024 1:10 PM EDT) Creatinine, Urine 27.10 mg/dL [facility] Protein, Total, Random Urine 8 <12 mg/dL [facility] Protein/Creati nine Ratio, Ur 0.30(H) <0.2 [facility] Comment:The spot urine prote in:creatinine ratio may increase to 0.3during normal . 09/06/2024 1:10 PM EDT 09/06/2024 2:27 PM EDT us Vaishali Knox MD LAB URINE ORDERABLES Final Re sult [facility] [address] [place] [address] [phone] * Syphilis Screen (09/06/2024 1:09 PM EDT) Syphilis Screen Nonreactive Nonreactive [facility] Blood 09/06/2024 1:09 PM EDT 09/06/2024 2:24 PM EDT us Ryan Rodriguez MD LAB BLOOD ORDERABLES Final Result Performing Organization Address [facility] Co de Phone Number [facility] [address] [place] [phone] * (ABNORMAL) Basic Metabolic Panel (09/06/2024 1:09 PM EDT) Only the most recent of2 resultswithin the time period is included. Sodium 139 135 - 145 mmol/L [facility] Potassium 4.5 3.3 - 5.1 mmol/L [facility] Chloride 103 96 - 108 mmol/L [facility] Carbon Dioxide 29 22 - 29 mmol/L [facility] Anion Gap 12 12 - 20 [facility] Urea Nitrogen (BUN) 43(H) 9 - 16 mg/dL [facility] Creatinine, Serum 1.11 0.5 - 1.4 mg/dL [facility] Estimated Glomerular Filt Rate 47 [facility] Comment:Chronic Kidney Disea se: Estimated GFR < 60 mL/min/[id number] Kidney Disease: Estimated GFR < 15 mL/min/1.73m2 Glucose 95 60 - 115 mg/dL [facility] Calcium 9.6 8.4 - 10.2 mg/dL [facility] Blood Venous blood specimen / Unknown 09/06/2024 1:09 PM EDT 09/06/2024 2:24 PM EDT us Vaishali Knox MD LAB BLOOD ORDERABLES Final Re sult Performing Organization Address City/[facility]/ZIP Co de Phone Number [facility] [address] [place] [phone] * CT Head w/o Contrast (09/06/2024) Anatomical Region Laterality Modality Head, Neck Computed Tomogra phy us Ryan Rodriguez MD IMG CT PROCEDURES Final Res ult * (ABNORMAL) Urinalysis, Complete, with Reflex to Culture (08/20/2024 10:20 AM EDT) Color Urine Yellow [facility] Appearance Urine Clear [facility] PH 5.5 5.0 - 9.0 [facility] Glucose Urine UA Negative Negative mg/dL [facility] Urine Blood Negative Negative [facility] Specific [place] - Urine 1.025 1.005 - 1.025 [facility] Urine Protein 100 (2+)(A) Neg-Trace mg/dL [facility] Urine Ketones Negative Negative mg/dL [facility] Nitrite Urine Negative Negative [facility] Leukocyte Esterase Urine Negative Negative [facility] RBC Urine 0-2 0 - 2 /HPF [facility] Urine WBC 0-5 0 - 5 /HPF [facility] Urine Squamous Epithelial Cell 0-2 0 - 2 /HPF [facility] Urine Bacteria None Seen None Seen [facility] Hyaline Casts, Urine 0-2 0 - 2 /LPF [facility] 08/20/2024 10:2 0 AM EDT 08/20/2024 2:37 PM EDT Narrative [facility] - 08/20/2024 3:05 PM EDT [id number], Clean Catch us Courtney Hein MD LAB URINE ORDERABLES Final Re sult [facility] [address] [place] [phone] [phone] * (ABNORMAL) Albumin, Random Urine W/Creatinine (08/20/2024 10:20 AM EDT) Creatinine, Urine 136.41 mg/dL [facility] Microalbumin Urine 283.0 mg/L [facility] Microalbum Creatinine Ratio Ur 207.4(H) <30 ug/mg cr [facility] Comment:Albumin/Creatinine R atio Reference Ranges: Normal: < 30 ug/mg creatinine Microalbuminuria: 30 - 300 ug/mg creatinineClinical Albuminuria: > 300 ug/mg creatinine Urine (Urine, Random) 08/20/2024 10:20 AM EDT 08/20/2024 2:37 PM EDT Courtney Hein MD LAB URINE ORDERABLES Final Re sult [facility] [address] [place] [phone] * Vitamin D, 25-Hydroxy, Total, Immunoassay (08/20/2024 10:15 AM EDT) Vitamin D 25-OH Total 35.1 >30 ng/mL [facility] Comment: Health Based Reference Values*< 20 ??ng/mL ??[id number] ng/mL ??Insufficient> 30 ??ng/mL ??Sufficient*Farnaz HOLGUIN. N [...] ORDERABLES Final Re sult Performing Organization Address [facility] Co de Phone Number [facility] [address] [place] [phone] * (ABNORMAL) Vitamin B12/Folate, Serum Panel (08/20/2024 10:15 AM EDT) Vitamin B12 911(H) 200 - 900 pg/mL [facility] Comment:NORMAL 200-900 PG/ML INDETERMINATE 160-199 PG/ML DEFICIENT < 160 PG/ML Folate 15.1 > or = 4.0 ng/mL [facility] Comment:Reference Values:> o r = 4.0 [...] ORDERABLES Final Re sult Performing Organization Address [facility] Co de Phone Number [facility] [address] [place] [phone] * TSH W/Reflex to FT4 (08/20/2024 10:15 AM EDT) TSH reflex Free T4 1.63 0.32 - 4.0 uIU/mL [facility] Blood Venous blood specimen / Unknown 08/20/2024 10:15 AM EDT 08/20/2024 2:43 PM EDT Courtney Hein MD LAB BLOOD ORDERABLES Final Re sult Performing Organization Address [facility] Co de Phone Number [facility] [address] [place] [phone] * (ABNORMAL) CBC auto differential (08/20/2024 10:15 AM EDT) White Blood Count 7.8 4.8 - 10.8 X10*3/uL [facility] Red Blood Count 4.08(L) 4.20 - 5.50 X10*6/uL [facility] Hemoglobin 12.5 12.0 - 16.0 g/dl [facility] Hematocrit 38.7 37.0 - 47.0 % [facility] Mean Corpuscular Volume 94.9 80.0 - 98.0 fL [facility] Mean Corpuscular Hemoglobin 30.6 27.0 - 33.0 pg [facility] Mean Corpuscular HGB Conc 32.3 31.0 - 35.0 g/dl [facility] Red Cell Distribution Width 14.5 11.0 - 16.0 % [facility] Platelet Count 199 160 - 400 X10*3/uL [facility] Mean Platelet Volume 10.2 9.4 - 12.3 fL [facility] Neutrophils Percent Auto 65.8 45 - 73 % [facility] Imm Gran Pct Auto 0.3 0.0 - 0.4 % [facility] Lymphocytes Percent Auto 21.3 20 - 40 % [facility] Monocytes Percent Auto 11.3(H) 2 - 11 % [facility] Eosinophils Percent Auto 0.8 0 - 4 % [facility] Basophils Percent Auto 0.5 0 - 2 % [facility] NRBC Pct Auto 0.0 0.0 - 0.2 /100WBC [facility] Neutrophils Absolute Auto 5.1 2.0 - 8.3 x10*3/uL [facility] Imm Gran Abs Auto 0.02 0.00 - 0.03 X10*3/uL [facility] Lymphocytes Absolute Auto 1.7 1.2 - 4.9 X10*3/uL [facility] Monocytes Absolute Auto 0.9 0.1 - 1.2 X10*3/uL [facility] Eosinophils Absolute Auto 0.1 0.0 - 0.4 X10*3/uL [facility] Basophils Absolute Auto 0.0 0.0 - 0.2 X10*3/uL [facility] NRBC Abs Auto 0.000 0.0 - 0.012 X10*3/uL [facility] Blood Venous blood specimen / Unknown 08/20/2024 10:15 AM EDT 08/20/2024 2:43 PM EDT Courtney Hein MD LAB BLOOD ORDERABLES Final Re sult Performing Organization Address City/[facility]/ZIP Co de Phone Number [facility] [address] [place] [phone] * Hepatic Function Panel (08/20/2024 10:15 AM EDT) Bilirubin, Total 0.3 0.0 - 1.0 mg/dL [facility] Bilirubin, Direct 0.1 0.0 - 0.5 mg/dL [facility] Aspartate Amino Transferase 30 5 - 31 U/L [facility] Alanine Aminotransferase 17 0 - 31 U/L [facility] Total Protein 7.7 6.5 - 8.0 g/dL [facility] Albumin Level 4.4 3.5 - 5.0 g/dL [facility] Alkaline Phosphatase 114 39 - 117 U/L [facility] Blood Venous blood specimen / Unknown 08/20/2024 10:15 AM EDT 08/20/2024 2:43 PM EDT Courtney Hein MD LAB BLOOD ORDERABLES Final Re sult Performing Organization Address City/[facility]/ZIP Co de Phone Number [facility] [address] [place] [phone] from Last 3 Months Insurance [facility] [employer] [place] [address] [place] [id number] Care Teams Hospital Chaplain Relationship Specialty Start Date End Date Arianne Patel MD [address] [place] [phone] PCP - General Family Medicine 05/24/23
--- OUTSIDE RECORDS SUMMARY | 2024-09-18 07:57 | XMS_ITS | Encounter Summary ---
Author Organization [employer] Address [address] [facility] [address] [place] [address] Care Team Providers Care Spray Dry Operator Name Role Phone Arianne Patel MD Primary Care Provider [phone] Reason for Visit * Reason Comments Hypertension Encounter Details Date Type Department Care Team (Latest Contact Info) Description 09/16/2024 10:00 AM EDT Clinical Support [facility] [address] [place] [address] Vidya Woods RN Primary hypertension Social History Tobacco Use Types [...] Pulse 60 09/16/2024 10:20 AM EDT Temperature - - Respiratory Rate - - Oxygen Saturation - - Inhaled Oxygen Concentration - - Weight - - Height - - Body Mass Index - - documented in this encounter Progress Notes * Vidya Woods RN - 09/16/2024 10:00 AM EDT SUBJECTIVE: Kirsten Rivera is a 83 y.o. year old female who presents for Hypertension with daughter Cinthia present. Recommendations at last visit were begin taking hydrochlorothiazide, monitor BP at home, and followup for blood pressure assessment.. Today, Kirsten Rivera does not complain of any blurred vision, shortness of breath, chest pain. Kirsten does complain of dizziness and headaches that happen often. Cinthia states that Kirsten has been forgetful and confused that has been slowly progressing that is documented with follow ups with neurology and PCP. Cinthia states that Kirsten takes her pills daily under supervision, pills are locked so Kirsten will not accidentally take extra doses as daughter states has happened in past in [place] and as a result she was having multiple falls. Cinthia has been cooking more low sodium foods such as baked chicken, substituting salt with seasonings, and ensuring Kirsten is eating vegetables that she boiled for her, but has been struggling to ensure Kirsten stays hydrated while Cinthia is at work. Kirsten has not been monitoring daily at home and Cinthia stated monitors about 3x a week and blood pressure systolic ranges from 140-180s. Cinthia states that Kirsten is not very active and stays home alone with Cinthia is at work. Cinthia expressed concerns for Kirsten being home alone and is looking into adult day health but states day programs require different insurances or it is out of pocket. Kirsten and Cinthia were recommended to speak with care management in office to discuss insurance options or applying for different insurance. Current Outpatient Medications Medication Sig Dispense Refill bisoprolol (Zebeta) 10 MG tablet Take 1 tablet (10 mg) by mouth Once per day. 90 tablet 1 Blood Pressure kit 1 kit 2 times daily. 1 kit 0 fluconazole (Diflucan) 150 MG tablet Take 1 tablet (150 mg) by mouth every 3rd (third) day. 3 tablet 0 gabapentin (Neurontin) 100 MG capsule 1-2 tabs 2 times a day. 120 capsule 3 hydroCHLOROthiazide 12.5 MG tablet Take 1 tablet [...] EVERY DAY IN THE MORNING 90 tablet 0 valACYclovir (Valtrex) 1 g tablet zolpidem (Ambien) 5 MG tablet Take 1 tablet (5 mg) by mouth if needed at bedtime for sleep. 28 tablet 1 No current facility-administered medications for this visit. Patient Active Problem List Diagnosis Date Noted History of breast cancer in female 07/06/2023 Primary hypertension 07/06/2023 Acquired hypothyroidism 07/06/2023 Herpes labialis 07/06/2023 Trigeminal neuralgia of right side of face 07/06/2023 Severe aortic stenosis 07/06/2023 Amoxicillin Kirsten Rivera does confirm adherence to medications for hypertension listed above. Confirmed medications taken today [x] Recent emergency room or hospitalizations: No Social History Tobacco Use Smoking Status Never Passive exposure: Never Smokeless Tobacco Never Social History Substance and Sexual Activity Alcohol Use Never Social History Substance and Sexual Activity Drug Use Never BP Readings from Last 4 Encounters: 09/16/24 (!) 148/84 09/02/24 (!) 154/66 08/23/24 (!) 220/80 08/20/24 (!) 191/81 Pulse Readings from Last 4 Encounters: 09/16/24 60 09/02/24 (!) 44 08/23/24 54 08/20/24 54 OBJECTIVE: Vitals: 09/16/24 1020 09/16/24 1021 BP: (!) 144/88 (!) 148/84 BP Location: Left arm Right arm Patient Position: Sitting Sitting BP Cuff Size: Adult Adult Pulse: 60 ASSESSMENT: Achieve goal blood pressure of <140/90 or <130/80 Kirsten is outside of her blood pressure goal PLAN: Kirsten Rivera advised to continue taking medications as directed and reinforcement of lifestyle modifications including low sodium diet and staying active with daily tasks. Advised continue monitoring blood pressure at home. Educated Kirsten and Cinthia if Kirsten starts having headaches, nausea,or dizziness to check blood pressure for tracking. Kirsten Rivera agreeable to plan discussed at today's visit. Vidya Woods RN documented in this encounter Plan of Treatment Upcoming Encounters Date Type Department Care Team (Late st Contact Info) Description 10/03/2024 11:30 AM EDT Office Visit [facility] [address] [place] [address] Arianne Patel MD [address] [place] [address] documented as of this encounter Visit Diagnoses Diagnosis Primary hypertension Unspecified essential hypertension documented in this encounter Additional Health Concerns Assessment Noted Time PHQ-9 Depression Total Score: 5 08/21/19 25 9:58 AM EDT documented as of this encounter Care Teams Spray Dry Operator Relationship Specialty Start Date End Date Arianne Patel MD [address] [place] [address] PCP - General Family Medicine 05/24/23 documented as of this encounter
--- NOTE | 2024-09-18 07:58 | CA_ITS ---
Transthoracic Echocardiogram Patient (Last, First, Middle): Kirsten Howard, Gender: Female Date of : 1940 Age: 83 Procedure Date: 09/18/2024 Procedure Type: Transthoracic Echocardiogram Location: OP Height: 142.24 cm Weight: 55.34 kg BSA: 1.44 m2 Heart Rate: 49 bpm BP: 150 / 80 mmHg Radiation Oncology Manager: SB/RC Referring MD: Vaishali Knox MD Hose Coupling Joiner: Tony Ahmadi MD Symptoms: I10 HTN Z86.79 HX OF AORTIC VALVE DISEASE Study Quality: Adequate ECG Rhythm: Bradycardia Conclusions: - 1. Normal LV ejection fraction 55-60% with grade 3 diastolic dysfunction 2. Mildly dilated left atrium 3. Possible bioprosthetic aortic valve with normal gradients of 10 mm Hg across the valve with normal function 4. Mildly elevated right ventricular systolic pressure 5. No gross pericardial effusion Findings Left Ventricle Normal left ventricular size, thickness, and systolic function. The visually estimated ejection fraction is between 55-60%. Spectral Doppler is indicative of a restrictive filling pattern. Elevated left atrial and left ventricular end-diastolic pressures. E/E prime ratio is >15, consistent with elevated filling pressures. Evidence suggests grade III (severe) diastolic dysfunction. Right Ventricle Normal right ventricular cavity size and systolic function. Atria The left atrium is mildly dilated. Interatrial shunt cannot be excluded. The right atrium is likely dilated. Aortic Valve A bioprosthetic aortic valve is present. The prosthetic aortic valve appears to be functioning normally. The aortic valve was not well visualized. The mean gradient is 11 mmHg. There is no aortic valve regurgitation. Mitral Valve There is mild anterior and moderate posterior mitral leaflet thickening. There is mild mitral annular calcification. There is mild mitral valve regurgitation. There is no mitral valve stenosis. Pulmonic Valve The pulmonic valve was not well visualized. Tricuspid Valve Likely normal tricuspid valve structure and function. There is mild tricuspid valve regurgitation. Normal right atrial pressure. Mild pulmonary hypertension is present. Great Vessels The aorta was not well visualized. The pulmonary artery was not well visualized. Venous The inferior vena cava is normal in size and collapses greater than 50% with inspiration. Pericardium/Pleural There is no evidence of pericardial effusion. Prior Study Comparison No prior study available for comparison. Measurements 2D Linear Measurements IVSd: 1.04 0.6-0.9/0.6-1.0 cm LVIDd: 4.67 3.9-5.3/4.2-5.9 cm LVIDd Index: 3.24 2.4-3.2/2.2-3.1 cm/m2 LVIDs: 3.74 2.0-3.6 cm LVPWd: 0.77 0.7-1.1 cm LA Diam: 4.30 2.7-3.8/3.0-4.0 cm LAIDs Index: 2.99 1.5-2.3 cm/m2 LV Mass: 176.41 67-162/88-224 g LV Mass Index: 122.50 43-95/49-115 g/m2 LVOT Diam: 1.70 3.0+(-)1.3 cm 2D Systolic Function EF 4C: 48.00 >55% EF 2C: 62.50 >55% EF BiP: 55.90 >55% Mitral Valve MV Pk E: 1.24 MV PK A: 0.78 MV Decel Time: 149.00 E/A: 1.60 E'Lateral: 7.80 E'Medial: 2.70 E/E' Med: 45.90 E/E' Lat: 15.90 PHT: 44.00 MVA PHT: 5.00 Decel Fallon: 8.34 Aortic Valve AoV Pk Jeremy: 2.45 AoV Mn Jeremy: 1.53 AoV VTI: 0.59 AoV Pk Grad: 24.00 Aov Mn Grad: 11.00 JULIETA Cont.VTI: 1.04 LVOT LVOT Pk Jeremy: 1.07 LVOT Mn Jeremy: 0.73 LVOT VTI: 0.27 LVOT Pk Grad: 5.00 LVOT Mn Grad: 2.00 LVOT Diam: 1.70 LVOT Area: 2.27 Diastolic Function MV Pk E: 1.24 MV Pk A: 0.78 E/A: 1.60 E'Medial: 2.70 E/E' Med: 45.90 E' Laterial: 7.80 E/E' Lat: 15.90 Right Ventricle TAPSE (mm): 16.10 TVS' Jeremy: 9.64 Tricuspid Valve TR Pk Jeremy: 3.04 TR Pk Grad: 37.00 RA Press: 3.00 RVSP: 40.00 Great Vessels Aorta Ao Asc: 3.00 2.1-3.4 cm Pulmonary Veins Pulm Vein S/D 0.80 Pulmonary Valve PV Pk Jeremy: 0.91 Peak PV Grad: 3.00 UT Pk Jeremy: 1.68 Updated in Other Vendor System with Status of Final Tony Ahmadi MD electronically signed on 09/18/2024 4:30:05 PM with status of Final
== END ==
LOC: HO.CARD 07:55
PROVIDERS: PCP Family Medicine; Visit Provider Internal Medicine
DX: I10 Essential (primary) hypertension (principal); Z86.79 Personal history of other diseases of the circulatory system
CPT/HCPCS: 93306

== ENCOUNTER → 2024-09-18 07:58 | Outpatient (BNV) | payer MEDICAID, SELFPAY | PROVIDERS: PCP Family Medicine; Visit Provider Internal Medicine Cardiovascular Disease | DX: I50.30 Unspecified diastolic (congestive) heart failure (principal); Z95.3 Presence of xenogenic heart valve; I34.0 Nonrheumatic mitral (valve) insufficiency; I36.1 Nonrheumatic tricuspid (valve) insufficiency | CPT/HCPCS: 93306 ==

== ENCOUNTER 2024-10-03 12:46 | Outpatient (REF) | payer MEDICAID, SELFPAY ==
--- OUTSIDE RECORDS SUMMARY | 2024-10-03 13:23 | XMS_ITS | Encounter Summary ---
Author Organization [employer] Address [address] [place] [address] 7 [place] [address] Care Team Providers Care Camelid Fiber Sorter Name Role Phone Arianne Patel MD Primary Care Provider [phone] Reason for Visit * Reason Comments Med Refill Encounter Details Date Type Department Care Team ([facility] st Contact Info) Description 08/07/2024 Refill [facility] MEDICINE [address] [place] [address] Arianne Patel MD [address] [place], [place] [phone] Primary hypertension Social History Tobacco Use Types [...] Care Team (Late st Contact Info) Description 10/23/2024 4:00 PM EDT Office Visit [facility] MED & PEDS [address] [place] [address] Arianne Patel MD [address] [place] [address] documented as of this encounter Visit Diagnoses Diagnosis Primary hypertension Unspecified essential hypertension documented in this encounter Additional Health Concerns Assessment Noted Time PHQ-9 Depression Total Score: 0 07/06/19 10:53 AM EST documented as of this encounter Care Teams Camelid Fiber Sorter Relationship Specialty Start Date End Date Arianne Patel MD [address] [place] [address] PCP - General Family Medicine 05/24/23 documented as of this encounter
--- OUTSIDE RECORDS SUMMARY | 2024-10-03 13:23 | XMS_ITS | Encounter Summary ---
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) Social History Tobacco Use Types Packs/Day Years [...] Sign Reading Time Taken Comments Blood Pressure 144/69 10/03/2024 11:00 AM EDT Pulse 72 10/03/2024 11:00 AM EDT Temperature 36.2 ??C (97.2 ??F) 10/03/2024 11:00 AM E DT Respiratory Rate 18 10/03/2024 11:00 AM EDT Oxygen Saturation 99% 10/03/2024 11:00 AM EDT Inhaled Oxygen Concentration - - Weight 57.2 kg (126 lb 3.2 oz) 10/03/2024 11:00 AM EDT Height 139.7 cm (4' 7 ) 10/03/2024 11:00 AM EDT Body Mass Index 29.33 10/03/2024 11:00 AM EDT documented in this encounter Plan of Treatment Upcoming Encounters Date Type Department Care Team (Late st Contact Info) Description 10/23/2024 4:00 PM EDT Office Visit [facility] MED & PEDS [address] [place] [address] Arianne Patel MD [address] [place] [address] Scheduled Orders Name Type Priority Associated Diagnoses Orde r Schedule Lipid Panel, Standard Lab Routine Cerebrovascular accident (CVA), unspecified mechanism (CMS/HCC) Expected: 10/03/2024 (Approximate), Expires: 10/03/2025 Creatine Kinase, Total Lab Routine Myalgia Expected: 10/03/2024 (Approximate), Expires: 10/03/2025 POCT Urinalysis Point of Care Testing Routine Dysuria Ordered: 10/03/2024 Urinalysis, Complete, with Reflex to Culture Lab Routine Dysuria Expected: 10/03/2024 (Approximate), Expires: 10/03/2025 Comprehensive Metabolic Panel Lab Routine Cerebrovascular accident (CVA), unspecified mechanism (CMS/HCC) Expected: 10/03/2024 (Approximate), Expires: 10/03/2025 documented as of this encounter Visit Diagnoses Diagnosis Cerebrovascular accident (CVA), unspecified mechanism (CMS/HCC)- Primary Myalgia Unspecified myalgia and myositis Dysuria 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
--- OUTSIDE RECORDS SUMMARY | 2024-10-03 13:23 | XMS_ITS | Encounter Summary ---
Author Organization [employer] Address [address] [place] [address] 7 [place] [address] Care Team Providers Care Materials Handler Name Role Phone Arianne Patel MD Primary Care Provider [phone] Reason for Visit * Reason Onset Date Comments Nurse Triage 09/30/2024 Encounter Details Date Type Department Care Team ([facility] st Contact Info) Description 09/30/2024 Telephone [facility] MEDICINE [address] [place] [address] Arianne Patel MD [address] [place] [address] Nurse Triage Social History Tobacco Use Types Packs/Day Years [...] encounter Miscellaneous Notes * Telephone Encounter - Ting Salmeron RN - 09/30/2024 4:16 PM EDT Called Kandis dowling back and notified her that it is ok Per PCP to resume Tylenol as needed for body pain. Nurse will be seeing pt. In am and will let pt. Daughter know that it is ok to resume Tylenol as needed for body pain. Pt. Has upcoming appt. On with PCP. * Telephone Encounter - Arianne Patel MD - 09/30/2024 4:11 PM EDT There are no contraindications. She may proceed with using APAP prn * Telephone Encounter - Ting Salmeron RN - 09/30/2024 3:43 PM EDT Called [facility] nurse. She states that recently pt. Was DX. With a Left sided stroke with right sided weakness pt. Pt. States that she has all over body pain but, appears to be WNL to [facility] nurse. Pt statesthat she used to take Tylenol for Arthritis but, was told by ED To hold off on Tylenol for now.Are there any contraindications for pt. To take Tylenol ? [facility]NA nurse stated that all vitals are stable and pt. Does not appear ill, no fever. Last BP was 130/78. VNA nurse wondering if she can give Tylenol PRN. Please advise. Pt. Does have upcoming HDF appt. In 3 days on 10/03/24 at 1115am with PCP. * Telephone Encounter - Vasilemauricio Templearez - 09/30/2024 3:40 PM EDT Symptom: Body Aches Outcome: Schedule an appointment to be seen within 3 days Reason: Caller denied all higher acuity questions The caller accepted this outcome. Is it okay for pt to take tylenol No fever/ vitals stable documented in this encounter Plan of Treatment Upcoming Encounters Date Type Department Care Team (Late st Contact Info) Description 10/23/2024 4:00 PM EDT [facility] Visit [facility] MED & PEDS [address] [place] [address] Arianne Patel MD [address] [place] [address] documented as of this encounter Visit Diagnoses Not on filedocumented in this encounter Additional Health Concerns Assessment Noted Time PHQ-9 Depression Total Score: 5 08/21/19 25 9:58 AM EDT documented as of this encounter Care Teams Materials Handler Relationship Specialty Start Date End Date Arianne Patel MD [address] [place] [address] PCP - General Family Medicine 05/24/23 documented as of this encounter
--- OUTSIDE RECORDS SUMMARY | 2024-10-03 13:23 | XMS_ITS | Encounter Summary ---
Author Organization [employer] Address [address] [place] [address] 7 [place] [address] Care Team Providers Care Nail Polish Brush Machine Feeder Name Role Phone Arianne Patel MD Primary Care Provider [phone] Encounter Details Date Type Department Care Team (Latest Contact Info) Description 10/03/2024 Travel Social History Tobacco Use Types Packs/Day [...] Upcoming Encounters Date Type Department Care Team ([facility] st Contact Info) Description 10/23/2024 4:00 PM EDT Office Visit [facility] MED & PEDS [address] [place] [address] Arianne Patel MD [address] [place] [address] documented as of this encounter Visit Diagnoses Not on filedocumented in this encounter Additional Health Concerns Assessment Noted Time PHQ-9 Depression Total Score: 5 08/21/19 25 9:58 AM EDT documented as of this encounter Care Teams Nail Polish Brush Machine Feeder Relationship Specialty Start Date End Date Arianne Patel MD [address] [place] [address] PCP - General Family Medicine 05/24/23 documented as of this encounter
--- OUTSIDE RECORDS SUMMARY | 2024-10-03 13:23 | XMS_ITS | Encounter Summary ---
Author Organization [employer] Address [address] [place] [address] 7 [place] [address] Care Team Providers Care Occupational Health Nurse Name Role Phone Arianne Patel MD Primary Care Provider [phone] Reason for Visit * Reason Onset Date Comments Referral 10/01/2024 FYI 10/01/2024 Encounter Details Date Type Department Care Team ([facility] st Contact Info) Description 10/01/2024 Telephone [facility] MEDICINE [address] [place] [address] Arianne Patel MD [address] [place] [address] Referral; FYI Social History Tobacco Use Types Packs/Day Years [...] encounter Miscellaneous Notes * Telephone Encounter - Vidya Woods RN - 10/03/2024 9:51 AM EDT TC received from [facility] with [facility]. Verbal orders given for PRODUCT TESTER and SW. Author advised for [facility] contact office for additional assistance if needed. * Telephone Encounter - Malinda Panda RN - 10/02/2024 3:43 PM EDT TC to [facility], asked to speak with [facility], she is gone for the day, they will have her return call tomorrow for clarification why social security benefits interviewer and speech therapist is needed. * Telephone Encounter - Vasile Juan - 10/01/2024 3:34 PM EDT TC from [facility] with [facility] requesting to see if [facility] can add a social security benefits interviewer and speech therapist to services. Also wanted to notify provider that Thursday 09/28 during home visit had heard a heart murmur documented in this encounter Plan of Treatment Upcoming Encounters Date Type Department Care Team (Late st Contact Info) Description 10/23/2024 4:00 PM EDT Office Visit [facility] MED & PEDS [address] [place] [address] Arianne Patel MD [address] [place] [address] documented as of this encounter Visit Diagnoses Not on filedocumented in this encounter Additional Health Concerns Assessment Noted Time PHQ-9 Depression Total Score: 5 08/21/19 25 9:58 AM EDT documented as of this encounter Care Teams Occupational Health Nurse Relationship Specialty Start Date End Date Arianne Patel MD [address] [place] [address] PCP - General Family Medicine 05/24/23 documented as of this encounter
--- OUTSIDE RECORDS SUMMARY | 2024-10-03 13:23 | XMS_ITS | Encounter Summary ---
Author Organization [employer] Address [address] [place] [address] 7 [place] [address] Care Team Providers Care Programmer Engineering And Scientific Name Role Phone Arianne Patel MD Primary Care Provider [phone] Encounter Details Date Type Department Care Team (Latest Contact Info) Description 10/02/2024 Travel Social History Tobacco Use Types Packs/Day [...] Upcoming Encounters Date Type Department Care Team ([facility] st Contact Info) Description 10/23/2024 4:00 PM EDT Office Visit [facility] MED & PEDS [address] [place] [address] Arianne Patel MD [address] [place] [address] documented as of this encounter Visit Diagnoses Not on filedocumented in this encounter Additional Health Concerns Assessment Noted Time PHQ-9 Depression Total Score: 5 08/21/19 25 9:58 AM EDT documented as of this encounter Care Teams Programmer Engineering And Scientific Relationship Specialty Start Date End Date Arianne Patel MD [address] [place] [address] PCP - General Family Medicine 05/24/23 documented as of this encounter
--- OUTSIDE RECORDS SUMMARY | 2024-10-03 13:23 | XMS_ITS | Encounter Summary ---
Author Organization [employer] Address [address] [place] [address] Care Team Providers Care Retoucher Name Role Phone Arianne Patel MD Primary Care Provider Reason for Referral * Imaging (Routine) - Authorized Specialty Diagnoses / Procedures Referred By Contac t Referred To Contact Radiology Diagnoses Memory disturbance Procedures Mr Brain w/ and w/o Contrast Ryan Rodriguez MD [address] [place] [address] Phone: tel: fax: [facility] [address] [place] [address], [address] [place] [address] Phone: tel: fax: Referral ID Status Reason Start Date Expiration Date V isits Requested Visits Authorized [id number] Authorized 09/18/2024 09/18/2025 1 1 Encounter Details Date Type Department Care Team ([facility] Contact Info) Description 09/17/2024 Orders Only [facility] CH[facility] MED & PEDS [address] [place], [place] [phone] Ryan Rodriguez MD [address] [place], [place] [phone] Memory disturbance (Primary Dx); Primary hypertension Social History Tobacco Use Types [...] Description 10/23/2024 4:00 PM EDT Office Visit [facility] MED & PEDS [address] [place] [address] Arianne Patel MD [address] [place] [address] Scheduled Orders Name Type Priority Associated Diagnoses Orde r Schedule Mr Brain w/ and w/o Contrast Imaging Routine Memory disturbance Expected: 09/18/2024, Expires: 09/18/2025 Homocysteine Lab Routine Memory disturbance Primary hypertension Expected: 09/18/2024 (Approximate), Expires: 09/18/2025 Methylmalonic Acid Lab Routine Memory disturbance Primary hypertension Expected: 09/18/2024 (Approximate), Expires: 09/18/2025 Lipid Panel, Standard Lab Routine Memory disturbance Primary hypertension Expected: 09/18/2024 (Approximate), Expires: 09/18/2025 documented as of this encounter Visit Diagnoses Diagnosis Memory disturbance- Primary Memory loss Primary hypertension Unspecified essential hypertension documented in this encounter Additional Health Concerns Assessment Noted Time PHQ-9 Depression Total Score: 5 08/21/19 25 9:58 AM EDT documented as of this encounter Care Teams Retoucher Relationship Specialty Start Date End Date Arianne Patel MD [address] [place] [address] PCP - General Family Medicine 05/24/23 documented as of this encounter
--- OUTSIDE RECORDS SUMMARY | 2024-10-03 13:24 | XMS_ITS | Clinical Summary ---
Author Organization [facility] Address [address] [place] [phone] Phone Care Team Providers Care Geographic Information Systems Director Name Role Phone Courtney Hein MD Primary [...] Office Visit [facility] [address] [phone] Irvin Barth MD [address] [phone] Health Maintenance Due Date Last Done Comments Influenza Vaccine (Season Ended) 2025 Pneumococcal Vaccine: 50+ Years Completed 4 Hepatitis B Vaccine Aged Out No longe r eligible based on patient's age to complete this topic Insurance Medicare Medicaid [place] Care Teams Geographic Information Systems Director Relationship Specialty Start Date End Date Courtney Hein MD [address] [place] [id number] PCP - General Internal Medicine 09/02/24
--- OUTSIDE RECORDS SUMMARY | 2024-10-03 13:24 | XMS_ITS | Clinical Summary ---
Author Organization [employer] Address [address] [place] [address] 7 [place] [address] Care Team Providers Care Bow Maker Custom Name Role Phone Arianne Patel MD Primary Care Provider [phone] Allergies Active Allergy Reactions Criticality Noted Date Comments Amoxicillin 07/06/2023 Medications magnesium oxide (Mag-Ox) 400 (240 Mg) MG tablet TAKE 1 TABLET (400 MG) BY MOUTH IN THE MORNING 90 tablet 1 02/01/20 24 Active levothyroxine (Synthroid, Levoxyl) 25 MCG tabletIndications :Acquired hypothyroidism TAKE 1 TABLET BY MOUTH EVERY DAY BEFORE BREAKFAST 90 tablet 1 07/09/19 25 Active Blood Pressure kitIndications:Pr imary hypertension 1 kit 2 times daily. 1 kit 08/21/19 25 Active Multiple Vitamin (Daily-Jeanette Multivitamin) tablet TAKE 1 TABLET BY MOUTH EVERY DAY IN THE MORNING 90 tablet 09/07/19 25 Active amLODIPine (Norvasc) 10 MG tablet Take 1 tablet by mouth Once per day. 09/26/19 25 Active Aspirin Low Dose 81 MG EC tablet Take 1 tablet by mouth Once per day. 09/26/19 25 Active atorvastatin (Lipitor) 40 MG tablet Take 1 tablet by mouth Once per day. 09/26/19 25 Active clopidogrel (Plavix) 75 MG tablet Take 1 tablet by mouth Once per day. 09/26/19 25 2024 Active pantoprazole (ProtoNix) 20 MG EC tablet Take 1 tablet by mouth before breakfast. 09/26/19 25 Active losartan (Cozaar) 50 MG tablet Take 1 tablet (50 mg) by mouth Once per day. 90 tablet 1 10/04/19 25 Active sertraline (Zoloft) 25 MG tablet Take 1 tablet (25 mg) by mouth Once per day. 90 tablet 1 10/04/19 25 Active valACYclovir (Valtrex) 1 g tablet 07/26/19 24 2024 Discontinued(M ed list cleanup (will not trigger notification to Pharmacy)) fluconazole (Diflucan) 150 MG tablet Take 1 tablet (150 mg) by mouth every 3rd (third) day. 3 tablet 11/14/19 24 2024 Discontinued(M ed list cleanup (will not trigger notification to Pharmacy)) Multiple Vitamin (Daily-Jeanette Multivitamin) tablet TAKE 1 TABLET BY MOUTH EVERY DAY IN THE MORNING 90 tablet 1 12/01/19 24 2024 Discontinued zolpidem (Ambien) 5 MG tabletIndications :Insomnia, unspecified type Take 1 tablet (5 mg) by mouth if needed at bedtime for sleep. 28 tablet 1 02/07/20 24 2024 Discontinued bisoprolol (Zebeta) 10 MG tablet Take 1 tablet (10 mg) by mouth Once per day. 90 tablet 1 08/21/19 25 2024 Discontinued(M ed list cleanup (will not trigger notification to Pharmacy)) hydroCHLOROthiazi de 12.5 MG tablet Take 1 tablet (12.5 mg) by mouth Once per day. 30 tablet 11 08/24/192024 Discontinued(M ed list cleanup (will not trigger notification to Pharmacy)) gabapentin (Neurontin) 100 MG capsuleIndication s:Trigeminal neuralgia of right side of face 1-2 tabs 2 times a day. 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 Her last PCP was in [place]. She will be traveling to [facility] and will get all the medical records. Daughter will upload immunization record into portal and will check if she needs any during her next F/U. She also wants a refill of her medication that are about to finish. I have also referred her to [facility]. Labs: CBC, Complete Metabolic Panel, Lipids, TSH w/ reflex to FT4, Albumin, Urinalysis complete w/ reflex to culture Future Appointments Date Time Provider Department Center 07/31/2023 9:15 AM Arianne Patel MD [facility] Acquired hypothyroidism 07/06/2023 Herpes labialis 07/06/2023 Trigeminal [...] for an ECHO and referred her to professor of violin. Encounters Date Type Department Care Team Description 10/03/2024 11:15 AM EDT Office Visit [facility] [address] [place] [address] Arianne Patel MD Cerebrovascular accident (CVA), unspecified mechanism ([facility]) (Primary Dx); Myalgia; Dysuria; Moderate vascular dementia with psychotic disturbance ([facility]) 10/03/2024 Travel 10/02/2024 Travel 10/01/[address] [address] Arianne Patel MD Referral; FYI 09/30/[address] [address] Arianne Patel MD Nurse Triage 09/26/[address] [address] Arianne Patel MD verbal order request 09/25/2024 Patient Outreach [address] [address] Arianne Patel MD Pre-visit Planning (Pre visit planning LVM ) 09/20/[address] [address] Arianne Patel MD order clarification 09/17/2024 Orders Only [facility] [address] [place] [address] Ryan Rodriguez MD Memory disturbance (Primary Dx); Primary hypertension 09/16/2024 10:00 AM EDT Clinical Support [facility] [address] [place] [address] Vidya Woods RN Primary hypertension 09/16/2024 Telephone [facility] [address] [place] [address] Arianne Patel MD 09/16/2024 Travel 09/11/2024 Telephone [facility] [address] [place] [address] Ryan Rodriguez MD 09/06/2024 Refill [facility] [address] [place] [address] Didi Weathers MD 09/04/2024 Telephone [facility] [address] [place] [address] Arianne Patel MD 09/02/2024 11:00 AM EDT Office Visit [facility] [address] [place] [address] Ryan Rodriguez MD Trigeminal neuralgia of right side of face (Primary Dx); Memory disturbance; Primary hypertension 09/02/2024 Travel 08/26/2024 Patient Outreach [facility] [address] [place] [address] Arianne Patel MD Pre-visit Planning (Pre visit planning LVM ) 08/23/2024 9:00 AM EDT Office Visit [facility] [address] [place] [address] Vaishali Knox MD Primary hypertension (Primary Dx); Accelerated hypertension; History of aortic valve disease 08/23/2024 Travel 08/22/2024 Telephone [facility] [address] [place] [address] Courtney Hein MD Results; Appointment Confirmation 08/22/2024 Telephone [facility] [address] [place], [place] [phone] Courtney Hein MD Results 08/22/2024 Telephone [facility] [address] [place], [place] [phone] Courtney Hein MD Results 08/21/2024 Orders Only [facility] [address] [place] [address] Courtney Hein MD CRF (chronic renal failure), stage 2 (mild) (Primary Dx); Primary hypertension; Proteinuria, unspecified type 08/20/2024 9:15 AM EDT Office Visit [facility] [address] [place] [address] Courtney Hein MD Primary hypertension (Primary Dx); Acquired hypothyroidism; Dietary counseling; Exercise counseling; Trigeminal neuralgia of right side of face; Severe aortic stenosis; History of breast cancer in female; Routine general medical examination at a health care facility 08/20/2024 Orders Only [facility] [address] [place] [address] Courtney Hein MD 08/20/2024 Travel 08/19/2024 Telephone [facility] [address] [place] [address] Arianne Patel MD 08/07/2024 Refill [facility] [address] [place], [place] [phone] Didi Weathers MD Primary hypertension 08/07/2024 Refill [facility] [address] [place] [address] Arianne Patel MD Primary hypertension 07/06/2024 Refill [facility] [address] [place], [place] [phone] Didi Weathers MD Acquired hypothyroidism from Last 3 Months Immunizations Immunization Administration Dates Next Due Pneumococcal Conjugate PCV [...] Mass Index 29.33 10/03/2024 11:00 AM EDT Plan of Treatment Upcoming Encounters Date Type Department Care Team (Late st Contact Info) Description 10/23/2024 4:00 PM EDT Office Visit [facility] [address] [place] [address] Arianne Patel MD [address] [place] [address] Health Maintenance Due Date Last Done Comments Lipid Panel 1942 DTaP/Tdap/Td Vaccines (1 - Tdap) 1961 Zoster Vaccines (1 of 2) 1992 RSV Patients and Patients Aged 60 years or older (1 - 1-dose 75+ series) 2017 COVID-19 Vaccine (2023-2 5 season) 2024 Influenza Vaccine (#1) 2024 Depression Screening 08/20/2025 08/20/2024, 08/20/2024 Alcohol/Substance Use Screening 09/02/2025 09/02/2024 SDOH Screening 09/02/2025 09/02/2024 Tobacco Screening 10/03/2025 10/03/2024 Pneumococcal Vaccine: 50+ Years Completed 07/31/2023 HIB [...] patient's age to complete this topic Meningococcal B Vaccine Aged Out No l onger eligible based on patient's age to complete [...] 1:10 PM EDT) Creatinine, Urine 27.10 mg/dL [facility] Protein, Total, Random Urine 8 <12 mg/dL [facility] Protein/Creati nine Ratio, Ur 0.30(H) <0.2 [facility] Comment:The spot urine prote in:creatinine ratio may increase to 0.3during normal . 09/06/2024 1:10 PM EDT 09/06/2024 2:27 PM EDT us Vaishali Knox MD LAB URINE ORDERABLES Final Re sult [facility] [address] [place] [phone] * Syphilis Screen (09/06/2024 1:09 PM EDT) Syphilis Screen Nonreactive Nonreactive [facility] Blood 09/06/2024 1:09 PM EDT 09/06/2024 2:24 PM EDT us Ryan Rodriguez MD LAB BLOOD ORDERABLES Final Result Performing Organization Address [facility] de Phone Number [facility] [address] [place] [address] [phone] * (ABNORMAL) Basic Metabolic Panel (09/06/2024 1:09 PM EDT) Only the most recent of2 resultswithin the time period is included. Sodium 139 135 - 145 mmol/L [facility] Potassium 4.5 3.3 - 5.1 mmol/L [facility] Chloride 103 96 - 108 mmol/L [facility] Carbon Dioxide 29 22 - 29 mmol/L [facility] Anion Gap 12 12 - 20 [facility] Urea Nitrogen (BUN) 43(H) 9 - 16 mg/dL [facility] Creatinine, Serum 1.11 0.5 - 1.4 mg/dL [facility] Estimated Glomerular Filt Rate 47 [facility] Comment:Chronic Kidney Disea se: Estimated GFR < 60 mL/min/1.41o7[place]uebru Kidney Disease: Estimated GFR < 15 mL/min/1.73m2 Glucose 95 60 - 115 mg/dL [facility] Calcium 9.6 8.4 - 10.2 mg/dL [facility] Blood Venous blood specimen / Unknown 09/06/2024 1:09 PM EDT 09/06/2024 2:24 PM EDT us Vaishali Knox MD LAB BLOOD ORDERABLES Final Re sult Performing Organization Address [facility]/ZIP Co de Phone Number [facility] [address] [place] [address] [phone] * CT Head w/o Contrast (09/06/2024) Anatomical Region Laterality Modality Head, Neck Computed Tomogra phy us Ryan Rodriguez MD IMG CT PROCEDURES Final Res ult * (ABNORMAL) Urinalysis, Complete, with Reflex to Culture (08/20/2024 10:20 AM EDT) Color Urine Yellow [facility] Appearance Urine Clear [facility] PH 5.5 5.0 - 9.0 [facility] Glucose Urine UA Negative Negative mg/dL [facility] Urine Blood Negative Negative [facility] Specific [place] - Urine 1.025 1.005 - 1.025 [facility] Urine Protein 100 (2+)(A) Neg-Trace mg/dL [facility] Urine Ketones Negative Negative mg/dL [facility] Nitrite Urine Negative Negative [facility] Leukocyte Esterase Urine Negative Negative [facility] RBC Urine 0-2 0 - 2 /HPF [facility] Urine WBC 0-5 0 - 5 /HPF [facility] Urine Squamous Epithelial Cell 0-2 0 - 2 /HPF [facility] Urine Bacteria None Seen None Seen [facility] Hyaline Casts, Urine 0-2 0 - 2 /LPF [facility] 08/20/2024 10:2 0 AM EDT 08/20/2024 2:37 PM EDT Narrative [facility] - 08/20/2024 3:05 PM EDT [id number], Clean Catch us Courtney Hein MD LAB URINE ORDERABLES Final Re sult [facility] [address] [place] [address] [phone] * (ABNORMAL) Albumin, Random Urine W/Creatinine (08/20/2024 10:20 AM EDT) Creatinine, Urine 136.41 mg/dL [facility] Microalbumin Urine 283.0 mg/L [facility] Microalbum Creatinine Ratio Ur 207.4(H) <30 ug/mg cr [facility] Comment:Albumin/Creatinine R atio Reference Ranges: Normal: < 30 ug/mg creatinine Microalbuminuria: 30 - 300 ug/mg creatinineClinical Albuminuria: > 300 ug/mg creatinine Urine (Urine, Random) 08/20/2024 10:20 AM EDT 08/20/2024 2:37 PM EDT Courtney Hein MD LAB URINE ORDERABLES Final Re sult Performing Organization Address City/[facility]/ZIP Co de Phone Number [facility] [address] [place] [phone] * Vitamin D, 25-Hydroxy, Total, Immunoassay (08/20/2024 10:15 AM EDT) Pathologist [facility] Vitamin D 25-OH Total 35.1 >30 ng/mL [facility] Comment: Health Based Reference Values*< 20 ??ng/mL ??Ubptosjnp35-32 ng/mL ??Insufficient> 30 ??ng/mL ??Sufficient*Farnaz HOLGUIN. N [...] MD LAB BLOOD ORDERABLES Final Re sult [facility] [address] [place] [phone] * (ABNORMAL) Vitamin B12/Folate, Serum Panel (08/20/2024 10:15 AM EDT) Pathologist [facility] Vitamin B12 911(H) 200 - 900 pg/mL [facility] Comment:NORMAL 200-900 PG/ML INDETERMINATE 160-199 PG/ML DEFICIENT < 160 PG/ML Folate 15.1 > or = 4.0 ng/mL [facility] Comment:Reference Values:> o r = [...] ORDERABLES Final Re sult Performing Organization Address [facility] Co de Phone Number [facility] [address] [place] [phone] * TSH W/Reflex to FT4 (08/20/2024 10:15 AM EDT) [facility] TSH reflex Free T4 1.63 0.32 - 4.0 uIU/mL [facility] Blood Venous blood specimen / Unknown 08/20/2024 10:15 AM EDT 08/20/2024 2:43 PM EDT Courtney Hein MD LAB BLOOD ORDERABLES Final Re sult Performing Organization Address [facility] Co de Phone Number [facility] [address] [place] [phone] * (ABNORMAL) CBC auto differential (08/20/2024 10:15 AM EDT) [facility] White Blood Count 7.8 4.8 - 10.8 X10*3/uL [facility] Red Blood Count 4.08(L) 4.20 - 5.50 X10*6/uL [facility] Hemoglobin 12.5 12.0 - 16.0 g/dl [facility] Hematocrit 38.7 37.0 - 47.0 % [facility] Mean Corpuscular Volume 94.9 80.0 - 98.0 fL [facility] Mean Corpuscular Hemoglobin 30.6 27.0 - 33.0 pg [facility] Mean Corpuscular HGB Conc 32.3 31.0 - 35.0 g/dl [facility] Red Cell Distribution Width 14.5 11.0 - 16.0 % [facility] Platelet Count 199 160 - 400 X10*3/uL [facility] Mean Platelet Volume 10.2 9.4 - 12.3 fL [facility] Neutrophils Percent Auto 65.8 45 - 73 % [facility] Imm Gran Pct Auto 0.3 0.0 - 0.4 % [facility] Lymphocytes Percent Auto 21.3 20 - 40 % [facility] Monocytes Percent Auto 11.3(H) 2 - 11 % [facility] Eosinophils Percent Auto 0.8 0 - 4 % [facility] Basophils Percent Auto 0.5 0 - 2 % [facility] NRBC Pct Auto 0.0 0.0 - 0.2 /100WBC [facility] Neutrophils Absolute Auto 5.1 2.0 - 8.3 x10*3/uL [facility] Imm Gran Abs Auto 0.02 0.00 - 0.03 X10*3/uL [facility] Lymphocytes Absolute Auto 1.7 1.2 - 4.9 X10*3/uL [facility] Monocytes Absolute Auto 0.9 0.1 - 1.2 X10*3/uL [facility] Eosinophils Absolute Auto 0.1 0.0 - 0.4 X10*3/uL [facility] Basophils Absolute Auto 0.0 0.0 - 0.2 X10*3/uL [facility] NRBC Abs Auto 0.000 0.0 - 0.012 X10*3/uL [facility] Blood Venous blood specimen / Unknown 08/20/2024 10:15 AM EDT 08/20/2024 2:43 PM EDT Courtney Hein MD LAB BLOOD ORDERABLES Final Re sult Performing Organization Address City/[facility]/ZIP Co de Phone Number [facility] [address] [place] [phone] [phone] * Hepatic Function Panel (08/20/2024 10:15 AM EDT) Bilirubin, Total 0.3 0.0 - 1.0 mg/dL [facility] Bilirubin, Direct 0.1 0.0 - 0.5 mg/dL [facility] Aspartate Amino Transferase 30 5 - 31 U/L [facility] Alanine Aminotransferase 17 0 - 31 U/L [facility] Total Protein 7.7 6.5 - 8.0 g/dL [facility] Albumin Level 4.4 3.5 - 5.0 g/dL [facility] Alkaline Phosphatase 114 39 - 117 U/L [facility] Blood Venous blood specimen / Unknown 08/20/2024 10:15 AM EDT 08/20/2024 2:43 PM EDT Courtney Hein MD LAB BLOOD ORDERABLES Final Re sult Performing Organization Address [facility]/ZIP Co de Phone Number [facility] [address] [place] [phone] from Last 3 Months Insurance [facility] [employer] MEDIC[employer] Care Teams Bow Maker Custom Relationship Specialty Start Date End Date Arianne Patel MD [address] [place] [address] PCP - General Family Medicine 05/24/23
[2024-10-03 14:34] LABS: Appearance Urine Clear; Color Urine Yellow; Glucose Urine UA Negative (Negative); Leukocyte Esterase Urine Negative (Negative); Nitrite Urine Negative (Negative); PH 5.5 (5.0-9.0); Specific Gravity - Urine 1.015 (1.005-1.025); UMIC TRIGGER UACC YES; Urine Blood Negative (Negative); Urine Ketones Negative (Negative); Urine Protein 30 (1+) mg/dL (Neg-Trace)
[2024-10-03 14:37] LABS: Bacteria Urine None Seen (None Seen); RBC Urine 0-2 /HPF (0-2); Squamous Epithelial Cell Urine 0-2 /HPF (0-2); WBC Urine 0-5 /HPF (0-5)
[2024-10-03 14:58] LABS: Alanine Aminotransferase 61 U/L (0-31); Albumin Level 4.5 g/dL (3.5-5.0); Anion Gap 17 (12-20); Aspartate Amino Transferase 64 U/L (5-31); Bilirubin Total 0.4 mg/dL (0.0-1.0); Blood Urea Nitrogen 38 mg/dL (9-16); Calcium 9.6 mg/dL (8.4-10.2); Carbon Dioxide 24 mmol/L (22-29); Chloride 97 mmol/L (96-108); Cholesterol 171 mg/dL (<200); Estimated Glomerular Filt Rate 40; Glucose Random 104 mg/dL (60-115); HDL Cholesterol 87 mg/dL (>40); LDL Cholesterol Calculated 72 mg/dL (<100); Potassium 4.3 mmol/L (3.3-5.1); Sodium 134 mmol/L (135-145); Total Protein 7.8 g/dL (6.5-8.0); Triglycerides 64 mg/dL (<150)
[2024-10-03 15:54] LABS: Alkaline Phosphatase 135 U/L (39-117)
== END 2024-10-03 12:47 | disposition home or self-care (01) ==
LOC: HO.CHCLDS 12:46
PROVIDERS: Visit Provider Family Medicine
DX: I63.9 Cerebral infarction, unspecified (principal); M79.10 Myalgia, unspecified site; R30.0 Dysuria
CPT/HCPCS: 36415; 80053; 80061; 81001; 82550

== ENCOUNTER 2024-10-28 11:28 | Outpatient (REF) | payer MEDICAID, SELFPAY ==
--- OUTSIDE RECORDS SUMMARY | 2024-10-28 13:07 | XMS_ITS | Encounter Summary ---
Author Organization [employer] Address [address] [place] [address] Care Team Providers Care Product Planner Name Role Phone Arianne Patel MD Primary Care Provider [phone] Reason for Referral * Imaging (Routine) - Authorized Specialty Diagnoses / Procedures Referred By Contac t Referred To Contact Radiology Diagnoses Memory disturbance Procedures Mr Brain w/ and w/o Contrast Ryan Rodriguez MD [address] [place] [address] Phone: tel: fax: [facility] [address] [place] [address], [address] [place] [phone] Phone: tel: fax: Referral ID Status Reason Start Date Expiration Date V isits Requested Visits Authorized [id number] Authorized 09/18/2024 09/18/2025 1 1 Encounter Details Date Type Department Care Team ([facility] st Contact Info) Description 09/17/2024 Orders Only [facility] [address] [place], [place] [phone] Ryan Rodriguez MD [address] [place], [place] [phone] Memory disturbance (Primary Dx); Primary hypertension Social [...] as of this encounter Plan of Treatment Scheduled Orders Name Type Priority Associated Diagnoses [...] documented as of this encounter Care Teams Product Planner Relationship Specialty Start Date End Date Arianne Patel MD [address] [place] [address] PCP - General Family Medicine 05/24/23 [facility] 09/28/24 documented as of this encounter
[2024-10-28 14:52] LABS: Alanine Aminotransferase 39 U/L (0-31); Albumin Level 4.3 g/dL (3.5-5.0); Alkaline Phosphatase 140 U/L (39-117); Anion Gap 11 (12-20); Aspartate Amino Transferase 38 U/L (5-31); Bilirubin Total 0.3 mg/dL (0.0-1.0); Blood Urea Nitrogen 36 mg/dL (9-16); Calcium 9.3 mg/dL (8.4-10.2); Carbon Dioxide 26 mmol/L (22-29); Chloride 103 mmol/L (96-108); Estimated Glomerular Filt Rate 43; Glucose Random 83 mg/dL (60-115); Potassium 4.2 mmol/L (3.3-5.1); Sodium 136 mmol/L (135-145); Total Protein 7.5 g/dL (6.5-8.0)
[2024-10-31 09:29] LABS: TS Negative Control Passed; TS Panel A 0; TS Panel B 0; TS Positive Control Passed; TSpotTB Negative (Negative)
== END 2024-10-28 11:29 | disposition home or self-care (01) ==
LOC: HO.CHCLDS 11:28
PROVIDERS: Visit Provider Family Medicine
DX: R74.01 Elevation of levels of liver transaminase levels (principal); A15.9 Respiratory tuberculosis unspecified
CPT/HCPCS: 36415; 80053; 86481

== ENCOUNTER 2024-11-09 07:13 | Outpatient (REF) | payer MEDICAID, SELFPAY ==
[2024-11-09 07:54] LABS: MANUAL DIFF FLAG NO
[2024-11-09 07:59] LABS: Basophils Absolute Auto 0.1 X10*3/uL (0.0-0.2); Eosinophils Absolute Auto 0.2 X10*3/uL (0.0-0.4); Eosinophils Percent Auto 2.9 % (0-4); Hematocrit 34.7 % (37.0-47.0); Hemoglobin 11.7 g/dl (12.0-16.0); Imm Gran Abs Auto 0.02 X10*3/uL (0.00-0.03); Imm Gran Pct Auto 0.3 % (0.0-0.4); Lymphocytes Absolute Auto 1.5 X10*3/uL (1.2-4.9); Lymphocytes Percent Auto 26.6 % (20-40); Mean Corpuscular HGB Conc 33.7 g/dl (31.0-35.0); Mean Corpuscular Hemoglobin 30.7 pg (27.0-33.0); Mean Corpuscular Volume 91.1 fL (80.0-98.0); Mean Platelet Volume 9.2 fL (9.4-12.3); Monocytes Absolute Auto 0.7 X10*3/uL (0.1-1.2); Monocytes Percent Auto 11.6 % (2-11); Neutrophils Absolute Auto 3.3 x10*3/uL (2.0-8.3); Neutrophils Percent Auto 57.6 % (45-73); Platelet Count 218 X10*3/uL (160-400); Red Blood Count 3.81 X10*6/uL (4.20-5.50); Red Cell Distribution Width 13.6 % (11.0-16.0); White Blood Count 5.8 X10*3/uL (4.8-10.8)
[2024-11-09 08:11] LABS: Estimated Average Glucose 117 mg/dL; Hemoglobin A1c % 5.7 % (<6.0)
[2024-11-09 08:13] LABS: Cholesterol 170 mg/dL (<200); HDL Cholesterol 62 mg/dL (>40); LDL Cholesterol Calculated 93 mg/dL (<100); Triglycerides 79 mg/dL (<150)
[2024-11-09 08:28] LABS: Anion Gap 13 (12-20); Blood Urea Nitrogen 44 mg/dL (9-16); Calcium 9.6 mg/dL (8.4-10.2); Carbon Dioxide 23 mmol/L (22-29); Chloride 105 mmol/L (96-108); Estimated Glomerular Filt Rate 40; Glucose Random 96 mg/dL (60-115); Magnesium 2.3 mg/dL (1.6-2.6); Phosphorus 3.6 mg/dL (2.7-4.5); Potassium 4.2 mmol/L (3.3-5.1); Sodium 137 mmol/L (135-145)
[2024-11-09 08:45] LABS: Parathyroid Hormone Intact 115.5 pg/mL (8.7-77.1); Uric Acid 4.5 mg/dL (2.4-5.7)
[2024-11-09 09:03] LABS: Appearance Urine Clear; Color Urine Yellow; Glucose Urine UA Negative (Negative); Leukocyte Esterase Urine Trace (Negative); Nitrite Urine Negative (Negative); PH 5.5 (5.0-9.0); Specific Gravity - Urine 1.015 (1.005-1.025); UMIC TRIGGER UA YES; Urine Blood Negative (Negative); Urine Ketones Negative (Negative); Urine Protein Negative (Neg-Trace)
[2024-11-09 09:03] LABS: Vitamin D 25-OH Total 34.2 ng/mL (>30)
[2024-11-09 09:09] LABS: Bacteria Urine None Seen (None Seen); RBC Urine 0-2 /HPF (0-2); Squamous Epithelial Cell Urine 0-2 /HPF (0-2); WBC Urine 0-5 /HPF (0-5)
[2024-11-09 09:42] LABS: Creatinine Urine 64.66 mg/dL; Total Protein Urine Random 13 mg/dL (<12)
[2024-11-11 14:24] LABS: Homocysteine 14.8 umol/L (< or = 13.4)
[2024-11-13 11:44] LABS: Methylmalonic Acid 138 nmol/L (85-423)
[2024-11-13 18:53] LABS: IgA 389 mg/dL (70-320); IgG 1316 mg/dL (600-1540); IgM 130 mg/dL (50-300)
== END 2024-11-09 07:14 | disposition home or self-care (01) ==
LOC: HO.LAB 07:13
PROVIDERS: Absent Provider Internal Medicine; PCP Family Medicine; Visit Provider Internal Medicine
DX: R41.3 Other amnesia (principal); I10 Essential (primary) hypertension; N18.32 Chronic kidney disease, stage 3b
CPT/HCPCS: 36415; 80048; 80061; 81001; 82043; 82306; 82570; 82610; 82784; 83036; 83090; 83735; 83921; 83970; 84100; 84156; 84550; 85025; 86334